=== PATIENT | male | born 1955 | race Asian ===

== ENCOUNTER 2020-11-30 07:30 | Outpatient (REF) | payer OTHER, SELFPAY ==
[2020-11-30 11:59] LABS: Prostate Specific Antigen Scr 2.95 ng/mL (<0.05-4.0); TSH reflex Free T4 1.35 uIU/mL (0.32-4.0)
[2020-11-30 12:02] LABS: Alanine Aminotransferase 28 U/L (0-40); Albumin Level 4.3 g/dL (3.5-5.0); Alkaline Phosphatase 93 U/L (39-117); Anion Gap 14 (12-20); Aspartate Amino Transferase 24 U/L (5-37); Bilirubin Total 0.7 mg/dL (0.0-1.0); Blood Urea Nitrogen 19 mg/dL (9-16); Calcium 8.6 mg/dL (8.4-10.2); Carbon Dioxide 28 mmol/L (22-29); Chloride 102 mmol/L (96-108); Cholesterol 184 mg/dL; Estimated Glomerular Filt Rate > 60; Glucose Fasting 104 mg/dL (60-99); HDL Cholesterol 49 mg/dL; LDL Cholesterol Calculated 107 mg/dl; Sodium 140 mmol/L (135-145); Total Protein 7.8 g/dL (6.5-8.0); Triglycerides 144 mg/dL
== END 2020-11-30 07:31 | disposition home or self-care (01) ==
LOC: HO.HMGCLDS 07:30
PROVIDERS: PCP Nurse Practitioner Family; Visit Provider Nurse Practitioner Family
DX: Z00.00 Encounter for general adult medical examination without abnormal findings (principal); I10 Essential (primary) hypertension; Z12.5 Encounter for screening for malignant neoplasm of prostate; R97.20 Elevated prostate specific antigen [PSA]
CPT/HCPCS: 36415; 80053; 80061; 84153; 84443

== ENCOUNTER 2021-02-22 08:04 | Outpatient (REF) | payer OTHER, SELFPAY ==
[2021-02-22 12:00] LABS: Alanine Aminotransferase 50 U/L (0-40); Albumin Level 4.6 g/dL (3.5-5.0); Alkaline Phosphatase 95 U/L (39-117); Anion Gap 11 (12-20); Aspartate Amino Transferase 37 U/L (5-37); Bilirubin Total 1.1 mg/dL (0.0-1.0); Blood Urea Nitrogen 14 mg/dL (9-16); Calcium 9.4 mg/dL (8.4-10.2); Carbon Dioxide 29 mmol/L (22-29); Chloride 103 mmol/L (96-108); Estimated Glomerular Filt Rate > 60; Glucose Random 115 mg/dL (60-115); Potassium 3.4 mmol/L (3.3-5.1); Sodium 140 mmol/L (135-145); Total Protein 7.9 g/dL (6.5-8.0)
== END 2021-02-22 08:05 | disposition home or self-care (01) ==
LOC: HO.HMGCLDS 08:04
PROVIDERS: PCP Nurse Practitioner Family; Visit Provider Urology
DX: N40.1 Benign prostatic hyperplasia with lower urinary tract symptoms (principal); N13.8 Other obstructive and reflux uropathy; R35.1 Nocturia; R97.20 Elevated prostate specific antigen [PSA]; I10 Essential (primary) hypertension
CPT/HCPCS: 36415; 80053; 84153; 99202

== ENCOUNTER 2021-02-23 08:45 | Outpatient (REF) | payer OTHER, SELFPAY ==
[2021-02-23 12:05] LABS: Prostate Specific Antigen 1.96 ng/mL (<0.05-4.0)
[2021-02-24 08:08] LABS: HBS Num1 0.06 mIU/mL (0-7.99); ~Hepatitis B Surface Antibody NONREACTIVE (Nonreactive)
[2021-02-24 08:57] LABS: HBsAGNum1 0.15 S/CO (0.00-0.99); Hepatitis B Core Antibody Nonreactive (Nonreactive); Hepatitis B Surface Antigen Negative (Negative); ~HepC Num1 0.11 S/CO (0.00-0.79); ~Hepatitis C Antibody Nonreactive (Nonreactive)
[2021-02-24 09:06] LABS: Hepatitis A Antibody IgM 0.13 Index (0-0.79); ~Hepatitis A Antibody IgM Nonreactive (Nonreactive)
== END 2021-02-23 08:46 | disposition home or self-care (01) ==
LOC: HO.HMGCLDS 08:45
PROVIDERS: Urology; PCP Nurse Practitioner Family; Visit Provider Nurse Practitioner Family
DX: Z12.5 Encounter for screening for malignant neoplasm of prostate (principal); N13.8 Other obstructive and reflux uropathy; N40.1 Benign prostatic hyperplasia with lower urinary tract symptoms; R74.8 Abnormal levels of other serum enzymes
CPT/HCPCS: 36415; 84153; 86704; 86706; 86709; 86803; 87340

== ENCOUNTER 2021-04-05 07:39 | Outpatient (REF) | payer OTHER, SELFPAY ==
--- NOTE | ~2021-04-05 | US_ITS ---
EXAMINATION: US ABDOMEN COMPLETE CLINICAL INFORMATION: Abnormal levels of other serum enzymes. COMPARISON: None TECHNIQUE: Real-time imaging of the abdominal viscera. FINDINGS: PANCREAS: Not well visualized due to bowel gas ABDOMINAL AORTA: The proximal, mid, and distal segments are normal in caliber. INFERIOR VENA CAVA: Visualized portions are normal. LIVER: Liver echotexture is increased probably representing fatty infiltration. There is a small calcification in the right lobe of the liver measuring 3 x 1 x 5 mm. There is a hypoechoic area adjacent to the gallbladder, characteristic location of focal fatty sparing. No other focal liver lesion is seen. Liver is normal in size and contour. There is no intrahepatic biliary duct dilatation seen. GALLBLADDER: Normal. The gallbladder is physiologically distended without evidence of stones, sludge, polyps, wall thickening or pericholecystic fluid. COMMON BILE DUCT: Normal in caliber measuring 0.3 cm in diameter. RIGHT KIDNEY: Normal. No hydronephrosis. No renal calculi or focal parenchymal lesions. The kidney measures 10.2 cm in maximum dimension. LEFT KIDNEY: There is a 5 mm cyst exophytic to the lateral midpole. No hydronephrosis or renal calculi. The kidney measures 10.4 cm in maximum dimension. SPLEEN: Normal. The spleen measures 9.9 cm in maximum dimension. FREE FLUID: None. US/US abdomen complete IMPRESSION: Echogenic liver probably representing fatty infiltration. Limited visualization of the pancreas. Small left renal cyst.
== END 2021-04-05 07:40 | disposition home or self-care (01) ==
LOC: HO.US 07:39
PROVIDERS: Visit Provider Nurse Practitioner Family
DX: R74.8 Abnormal levels of other serum enzymes (principal); N40.1 Benign prostatic hyperplasia with lower urinary tract symptoms; N13.8 Other obstructive and reflux uropathy
CPT/HCPCS: 76700; 99212

== ENCOUNTER 2021-10-06 09:03 | Outpatient (REF) | payer OTHER, SELFPAY ==
[2021-10-06 11:57] LABS: Prostate Specific Antigen 2.02 ng/mL (<0.05-4.0)
== END 2021-10-06 09:04 | disposition home or self-care (01) ==
LOC: HO.HMGCLDS 09:03
PROVIDERS: PCP Nurse Practitioner Family; Visit Provider Urology
DX: Z12.5 Encounter for screening for malignant neoplasm of prostate (principal); N40.1 Benign prostatic hyperplasia with lower urinary tract symptoms; N13.8 Other obstructive and reflux uropathy
CPT/HCPCS: 36415; 84153

== ENCOUNTER → 2021-10-13 12:18 | Outpatient (BNVA) | payer OTHER, SELFPAY | PROVIDERS: PCP Nurse Practitioner Family; Visit Provider Urology ==

== ENCOUNTER 2022-03-09 07:46 | Outpatient (REF) | payer OTHER, SELFPAY ==
[2022-03-09 12:00] LABS: MANUAL DIFF FLAG NO
[2022-03-09 12:09] LABS: Basophils Absolute Auto 0.1 X10*3/uL (0.0-0.2); Basophils Percent Auto 0.8 % (0-2); Eosinophils Absolute Auto 0.4 X10*3/uL (0.0-0.4); Eosinophils Percent Auto 5.3 % (0-4); Hematocrit 43.1 % (42.0-52.0); Hemoglobin 14.3 g/dl (14.0-18.0); Imm Gran Abs Auto 0.01 X10*3/uL (0.00-0.03); Imm Gran Pct Auto 0.2 % (0.0-0.4); Lymphocytes Absolute Auto 2.7 X10*3/uL (1.2-4.9); Lymphocytes Percent Auto 40.9 % (20-40); Mean Corpuscular HGB Conc 33.2 g/dl (31.0-36.0); Mean Corpuscular Hemoglobin 29.2 pg (27.0-33.0); Mean Corpuscular Volume 88.1 fL (80.0-98.0); Mean Platelet Volume 10.7 fL (9.4-12.4); Monocytes Percent Auto 14.6 % (2-11); Neutrophils Absolute Auto 2.6 x10*3/uL (2.0-8.3); Neutrophils Percent Auto 38.2 % (45-73); Platelet Count 205 X10*3/uL (160-400); Red Blood Count 4.89 X10*6/uL (4.60-5.80); Red Cell Distribution Width 13.1 % (11.0-16.0); White Blood Count 6.7 X10*3/uL (4.8-10.8)
[2022-03-09 12:11] LABS: Appearance Urine CLOUDY; Color Urine YELLOW; Glucose Urine UA NEG (NEG); Leukocyte Esterase Urine NEG (NEG); Nitrite Urine NEG (NEG); Specific Gravity - Urine 1.025 (1.005-1.025); UACC Culture Trigger NO; Urine Blood 3+ (NEG); Urine Ketones NEG (NEG); Urine Protein NEG (NEG-TRACE)
[2022-03-09 12:26] LABS: Alanine Aminotransferase 31 U/L (0-40); Albumin Level 4.5 g/dL (3.5-5.0); Alkaline Phosphatase 85 U/L (39-117); Anion Gap 13 (12-20); Aspartate Amino Transferase 25 U/L (5-37); Bilirubin Total 0.6 mg/dL (0.0-1.0); Blood Urea Nitrogen 16 mg/dL (9-16); Calcium 9.5 mg/dL (8.4-10.2); Carbon Dioxide 29 mmol/L (22-29); Chloride 102 mmol/L (96-108); Cholesterol 183 mg/dL; Estimated Glomerular Filt Rate > 60; Glucose Fasting 119 mg/dL (60-99); HDL Cholesterol 44 mg/dL; LDL Cholesterol Calculated 116 mg/dl; Potassium 3.6 mmol/L (3.3-5.1); Sodium 140 mmol/L (135-145); Triglycerides 119 mg/dL
[2022-03-09 12:38] LABS: TSH reflex Free T4 1.04 uIU/mL (0.32-4.0)
[2022-03-09 13:01] LABS: WBC Urine 0 /HPF (0-4)
[2022-03-09 13:02] LABS: Amorphous Sediment Urine 3+ /LPF; Calcium Oxalate Crystals Urine 1+ /LPF
== END 2022-03-09 07:47 | disposition home or self-care (01) ==
LOC: HO.HMGCLDS 07:46
PROVIDERS: Visit Provider Nurse Practitioner Family
DX: Z00.00 Encounter for general adult medical examination without abnormal findings (principal)
CPT/HCPCS: 36415; 80053; 80061; 81001; 81003; 84443; 85025

== ENCOUNTER 2022-04-13 15:46 | Outpatient (REF) | payer OTHER, SELFPAY ==
[2022-04-13 17:12] LABS: Appearance Urine CLEAR; Color Urine YELLOW; Glucose Urine UA NEG (NEG); Leukocyte Esterase Urine NEG (NEG); Nitrite Urine NEG (NEG); Specific Gravity - Urine 1.025 (1.005-1.025); Urine Blood 2+ (NEG); Urine Ketones NEG (NEG); Urine Protein NEG (NEG-TRACE)
[2022-04-13 17:18] LABS: WBC Urine 0-2 /HPF (0-4)
== END 2022-04-13 15:47 | disposition home or self-care (01) ==
LOC: HO.LAB 15:46
PROVIDERS: PCP Nurse Practitioner Family; Visit Provider Urology
DX: N13.8 Other obstructive and reflux uropathy (principal); N40.1 Benign prostatic hyperplasia with lower urinary tract symptoms
CPT/HCPCS: 81001; 87086

== ENCOUNTER → 2022-04-19 15:14 | Outpatient (BNVA) | payer OTHER, SELFPAY | PROVIDERS: PCP Nurse Practitioner Family; Visit Provider Nurse Practitioner | DX: Z01.818 Encounter for other preprocedural examination (principal); D12.6 Benign neoplasm of colon, unspecified | CPT/HCPCS: 99202; 99212 ==

== ENCOUNTER 2022-06-28 11:12 | Day surgery (SDC) | payer OTHER, SELFPAY ==
[2022-06-22 12:11] VITALS: BMI 26.8
--- NOTE | 2022-06-27 11:32 | HO.ANESPROP2 ---
Documented by User: Molly Perrin NP 06/27/22 11:33 HPI - Anesthesia Eval Consult details Narrative: 66yo M for Colonoscopy PMFSH Active Problems Active Problems: All Active Problems (Updated 06/22/22 @ 12:06 by Margy Whatley RN) HTN (hypertension) (Acute) Physical exam (Acute) Screening PSA (prostate specific antigen) (Acute) Increased prostate specific antigen (PSA) velocity (Acute) Nocturia more than twice per night (Acute) BPH w urinary obs/LUTS (Acute) Elevated liver enzymes (Acute) Screening for colon cancer (Acute) Preop examination (Acute) Tubular adenoma of colon (Acute) Past Medical History Medical History BPH (benign prostatic hyperplasia) Elevated cholesterol HTN (hypertension) Surgical History Surgical History H/O colonoscopy History of appendectomy Social History Social History Housing: House Patient Tobacco Use Status: Former Tobacco user Quit Date: 8 yrs ago Years Smoked: 8 years ago e-Cigarette/Vaping Use: Never Used Second Hand Smoke Exposure: No Use of substances other than those prescribed or required for medical reasons: No Are you DNR?: No Advance Directives: No Advance Directives Information Provided: Yes service: No Current occupational status: disabled Cognitive needs: No Hearing needs: No Vision needs: No Meds Allergies Allergy/AdvReac Type Severity Reaction Status Date / Time No Known Allergies Allergy Verified 06/28/22 12:18 Home Medications Medication Instructions Recorded Confirmed Last Taken Type ferrous sulfate 325 mg (65 mg 325 mg PO DAILY 02/06/21 02/20/22 Unknown History iron) tablet (Desirae-Time) tamsulosin 0.4 mg capsule 0.4 mg PO BEDTIME 04/19/22 Unknown History Exam Exam Date and Time: June 27, 2022 1132 Height,Weight and Vital Signs: Height 5 ft 6 in Weight 75.296 kg Pertinent Lab Results Pertinent Lab Results: Laboratory Tests 03/09/22 03/09/22 07:52 07:52 WBC 6.7 Hgb 14.3 Hct 43.1 Plt Count 205 Sodium 140 Potassium 3.6 Chloride 102 Carbon Dioxide 29 BUN 16 Creatinine 1.12 Assessment and Plan Assessment Anesthesia Assessment: Chart Reviewed Documented by User: Vidal Francisco MD 06/28/22 12:35 PMF Past Medical History Medical History BPH (benign prostatic hyperplasia) Elevated cholesterol HTN (hypertension) Family History Family history of problems with anesthesia: No Surgical History Surgical History H/O colonoscopy History of appendectomy History of Problems with Anesthesia: No Social History Social History Housing: House Patient Tobacco Use Status: Former Tobacco user Quit Date: 8 yrs ago Years Smoked: 8 years ago e-Cigarette/Vaping Use: Never Used Second Hand Smoke Exposure: No Use of substances other than those prescribed or required for medical reasons: No Are you DNR?: No Advance Directives: No Advance Directives Information Provided: Yes service: No Current occupational status: disabled Cognitive needs: No Hearing needs: No Vision needs: No Meds Allergies Allergy/AdvReac Type Severity Reaction Status Date / Time No Known Allergies Allergy Verified 06/28/22 12:18 Home Medications Medication Instructions Recorded Confirmed Last Taken Type ferrous sulfate 325 mg (65 mg 325 mg PO DAILY 02/06/21 02/20/22 Unknown History iron) tablet (Desirae-Time) tamsulosin 0.4 mg capsule 0.4 mg PO BEDTIME 04/19/22 Unknown History Exam Airway Mallampati Class: II TM Dist: >3cm Neck ROM: Full Loose/Missing/Broken Teeth: No Heart: rrr+[id number] Lungs: cta b/l Assessment and Plan Assessment Anesthesia Assessment: Anesthesia Plan Discussed Final Anesthetic Review Family History of Problems with Anesthesia: No History of Problems with Anesthesia: No NPO: Yes ASA Class: III Final Preanesthetic Review: No Changes in Pt Med Stat, Meds/Allgs Chart Reviewed, Consent Obtained/Reviewed and Anes Risks/Benef Reviewed Patient Risk: Intermediate Procedure Risk: Low Assessment/Block/Sedation in SS: Assess/Block/Sedation-SS Anesthetic Plan Anesthetic Plan: MAC: and Agree w/ Assess. and Plan Disposition: Standard PACU
[2022-06-28 12:25] VITALS: BP 142/85; PULSE 68; RESP 15; TEMP 36.6; O2SAT 98
[2022-06-28] MEDS: Lactated Ringers 1,000 ML 50 ML IVCONT (13:04)
--- NOTE | 2022-06-28 13:14 | P.HPSUR_ITS ---
Pre-Procedural Eval Section A Date of Service: 06/28/22 Section B Chief Complaint: personal hx of polyps Details of Present Illness: Hx of colonoscopy 5y ago in [place] and was told he had 5 polyps. Seen with help of Miguel acute care assistant. Relevant Family History (Specify if Yes): No Relevant Social History: Tobacco Use (Former ) History of Previous Operations: Relevant previous surgery/procedure and date(s) ( H/O colonoscopy History of appendectomy) Allergies: Allergies Allergy/AdvReac Type Severity Reaction Status Date / Time No Known Allergies Allergy Verified 06/28/22 12:18 Review of Systems Review of Systems Comment: 10 point ROS negative except as above Exam Exam Comment: Gen appear: No acute distress, well nourished HEENT: no icterus, Chest: No overt resp distress Abd: soft, nontender, nondistended Psych: Stable affect, answering questions appropriately Neuro: A/Ox3 noted to move all extremities spontaneously Ext: no peripheral edema Plan I have reviewed the history and physical and performed a pertinent physical examination on my patient. No changes have occurred unless specified.
--- NOTE | 2022-06-28 13:48 | P.OP_ITS ---
Operative Note Operative Note Date of Service: 06/28/22 Narrative: Procedure: Colonoscopy Indication: Personal history of polyps Endoscopist: Renu Ornelas MD Anesthesia Provider: Rachel James CRNA Anesthesia type: MAC Instrument: Olympus [id number]-[id number] Consent: Indication, risks vs benefits, and alternatives were discussed with the patient who gave written informed consent to proceed. An marketing analytics analyst was utilized to assist with the consent. EKG, pulse, pulse oximetry and blood pressure were monitored throughout the procedure. Please see anesthesia flowsheet. Procedure: The patient was brought to the procedure room and placed in the left lateral decubitus position. IV medications were administered by the anesthesia provider in attendance. A digital rectal exam was performed which was normal. The colonoscope was then inserted through the anus and advanced through the colon to the cecum at 80 cm,and terminal ileum. Mucosa was carefully examined under high definition white light as the instrument was slowly withdrawn in a retrograde panoramic fashion. Retroflexion was performed in rectum. The procedure was not difficult. There were no immediate obvious complications. The quality of the prep was BBPS: 3+3+3 = excellent Withdrawal time 19 minutes. Limitations: No limitations. Findings: Mucosa: * Normal to cecum and terminal ileum. Protruding lesions: * 3 sessile polyp of size 2-3 mm in rectum. Cold forceps polypectomy was performed. The polyps were completely removed and retrieved. * Medium internal hemorrhoids without stigmata of recent bleeding. Excavated lesions: * Moderate diverticulosis of whole colon including cecum. Impression: 1. Normal colon and terminal ileum mucosa 2. Total of 3 polyps removed from rectum. 3. Diverticulosis 3. Internal hemorrhoids Recommendations: - Follow path results. - Repeat colonoscopy in 3-5 years if all polyps are adenomas, otherwise 7-10 years. - Increase fiber intake.
[2022-06-28 13:53] VITALS: BP 104/62; PULSE 68; RESP 16; TEMP 36.2; O2SAT 96
[2022-06-28 14:08] VITALS: BP 131/80; PULSE 69; RESP 16; TEMP 36.2; O2SAT 96
== END 2022-06-28 14:30 | disposition home or self-care (01) ==
PROVIDERS: PCP Nurse Practitioner Family; Visit Provider Internal Medicine
PROC: 0DJD8ZZ Inspection of Lower Intestinal Tract, Via Natural or Artificial Opening Endoscopic (ICD-10-PCS; CPT 45378; principal; 2022-06-28 12:40)
DX: Z12.11 Encounter for screening for malignant neoplasm of colon (principal); Z86.010 Personal history of colon polyps; K62.1 Rectal polyp; K57.30 Diverticulosis of large intestine without perforation or abscess without bleeding; K64.8 Other hemorrhoids; I10 Essential (primary) hypertension; N40.0 Benign prostatic hyperplasia without lower urinary tract symptoms; R74.8 Abnormal levels of other serum enzymes; Z79.899 Other long term (current) drug therapy; Z87.891 Personal history of nicotine dependence
CPT/HCPCS: 45380; 88305

== ENCOUNTER → 2022-07-12 09:57 | Outpatient (BNVA) | payer OTHER, SELFPAY | PROVIDERS: PCP Nurse Practitioner Family; Visit Provider Nurse Practitioner | DX: D12.6 Benign neoplasm of colon, unspecified (principal) | CPT/HCPCS: 99212 ==

== ENCOUNTER → 2022-09-07 07:17 | Outpatient (REF) | payer MEDICAID, SELFPAY ==
--- NOTE | 2022-09-07 07:20 | CA_ITS ---
Transthoracic Echocardiogram Patient (Last, First, Middle): Bertram Hidalgo, Gender: Male Date of : 1955 Age: 67 Procedure Date: 09/07/2022 Procedure Type: Transthoracic Echocardiogram Location: OP Height: 167.64 cm Weight: 77.11 kg BSA: 1.87 m2 Heart Rate: bpm BP: 123 / 60 mmHg Pc Network Technician: Referring MD: Darwin Del Angel [facility] Symptoms: R01.1 - Cardiac murmur, unspecified Study Quality: Good ECG Rhythm: Sinus Conclusions: - The left ventricular systolic function is normal. The calculated ejection fraction is 60% by biplane method. - There is moderately increased left ventricular wall thickness. - No obvious valvular pathology seen on this study. Findings Left Ventricle Normal left ventricular cavity size. There is moderately increased left ventricular wall thickness. The left ventricular systolic function is normal. The calculated ejection fraction is 60% by biplane method. There is no evidence of regional wall motion abnormalities. E/E prime ratio is between 8 and 15 consistent with indeterminate filling pressures. Evidence suggests grade I (mild) diastolic dysfunction. Right Ventricle Normal right ventricular cavity size and systolic function. Atria Both atria are normal in size. There is a mobile atrial septum noted. Interatrial shunt cannot be excluded. Aortic Valve There is a normal trileaflet aortic valve. There is mild calcification of the aortic valve. There is no aortic valve stenosis. There is no aortic valve regurgitation. Mitral Valve The mitral valve appears normal. There is trace mitral valve regurgitation. There is no mitral valve stenosis. Pulmonic Valve The pulmonic valve is likely normal. Tricuspid Valve Normal tricuspid valve structure. There is trace tricuspid valve regurgitation. There is no evidence of pulmonary hypertension. Great Vessels The asc aorta is normal in size. Venous The inferior vena cava is normal in size and collapses greater than 50% with inspiration. Pericardium/Pleural There is no evidence of pericardial effusion. Prior Study Comparison No prior study available for comparison. Recommendations, Care & Conclusions No obvious valvular pathology seen on this study. Measurements 2D Linear Measurements IVSd: 1.34 0.6-0.9/0.6-1.0 cm LVIDd: 3.91 3.9-5.3/4.2-5.9 cm LVIDd Index: 2.09 2.4-3.2/2.2-3.1 cm/m2 LVIDs: 2.74 2.0-3.6 cm LVPWd: 1.23 0.7-1.1 cm Ao Root: 3.60 2.1-3.5 cm LA Diam: 3.90 2.7-3.8/3.0-4.0 cm LAIDs Index: 2.09 1.5-2.3 cm/m2 LV Mass: 220.81 67-162/88-224 g LV Mass Index: 118.08 43-95/49-115 g/m2 LVOT Diam: 2.50 3.0+(-)1.3 cm 2D Systolic Function EF 4C: 61.50 >55% EF 2C: 61.20 >55% EF BiP: 60.00 >55% Mitral Valve MV Pk E: 0.55 MV PK A: 0.87 MV Decel Time: 238.00 E/A: 0.60 E'Lateral: 6.09 E'Medial: 4.46 E/E' Med: 12.30 E/E' Lat: 9.00 PHT: 70.00 MVA PHT: 3.14 Decel [place]: 2.31 Aortic Valve AoV Pk Ed[place]ard: 1.30 AoV Mn [place]: 0.80 AoV VTI: 0.22 AoV Pk Grad: 7.00 Aov Mn Grad: 3.00 HODA Cont.VTI: 4.27 LVOT LVOT Pk [place]: 0.84 LVOT Mn [place]: 0.50 LVOT VTI: 0.20 LVOT Pk Grad: 3.00 LVOT Mn Grad: 1.00 LVOT Diam: 2.50 LVOT Area: 4.91 Diastolic Function MV Pk E: 0.55 MV Pk A: 0.87 E/A: 0.60 E'Medial: 4.46 E/E' Med: 12.30 E' Laterial: 6.09 E/E' Lat: 9.00 Right Ventricle TAPSE (mm): 19.00 TVS' [place]: 11.00 Tricuspid Valve TR Pk [place]ard: 2.10 TR Pk Grad: 18.00 RA Press: 3.00 RVSP: 21.00 Great Vessels Aorta Ao Root-2D: 3.60 2.0-3.7 cm Ao Asc: 3.80 2.1-3.4 cm Pulmonary Valve PV Pk Edouard: 1.02 Peak PV Grad: 4.00 Updated in Other Vendor System with Status of Final Blas Chi MD electronically signed on 09/08/2022 2:17:17 PM with status of Final
== END ==
LOC: HO.CARD 07:17
PROVIDERS: PCP Nurse Practitioner Family; Visit Provider Nurse Practitioner Family
DX: R01.1 Cardiac murmur, unspecified (principal)
CPT/HCPCS: 93306

== ENCOUNTER 2022-09-24 08:46 | Outpatient (REF) | payer MEDICAID, SELFPAY ==
[2022-09-24 13:00] LABS: Prostate Specific Antigen 2.77 ng/mL (<0.05-4.0)
== END 2022-09-24 08:47 | disposition home or self-care (01) ==
LOC: HO.HMGCLDS 08:46
PROVIDERS: Absent Provider Urology; PCP Nurse Practitioner Family; Visit Provider Nurse Practitioner Family
DX: N40.1 Benign prostatic hyperplasia with lower urinary tract symptoms (principal); N13.8 Other obstructive and reflux uropathy; Z12.5 Encounter for screening for malignant neoplasm of prostate
CPT/HCPCS: 36415; 84153

== ENCOUNTER → 2022-10-16 14:38 | Outpatient (BNVA) | payer MEDICAID, SELFPAY | PROVIDERS: PCP Nurse Practitioner Family; Visit Provider Urology | DX: N40.1 Benign prostatic hyperplasia with lower urinary tract symptoms (principal); N13.8 Other obstructive and reflux uropathy; R35.1 Nocturia | CPT/HCPCS: 51798; 99212 ==

== ENCOUNTER 2022-12-04 08:01 | Outpatient (REF) | payer MEDICAID, SELFPAY ==
[2022-12-04 11:39] LABS: MANUAL DIFF FLAG NO
[2022-12-04 11:43] LABS: Appearance Urine Turbid; Color Urine Yellow; Glucose Urine UA Negative (Negative); Leukocyte Esterase Urine Negative (Negative); Nitrite Urine Negative (Negative); Specific Gravity - Urine 1.025 (1.005-1.025); UMIC TRIGGER UACC YES; Urine Blood Moderate (2+) (Negative); Urine Ketones Trace mg/dL (Negative); Urine Protein Trace mg/dL (Neg-Trace)
[2022-12-04 11:54] LABS: Basophils Absolute Auto 0.1 X10*3/uL (0.0-0.2); Basophils Percent Auto 0.7 % (0-2); Eosinophils Absolute Auto 0.4 X10*3/uL (0.0-0.4); Eosinophils Percent Auto 4.8 % (0-4); Hematocrit 43.8 % (42.0-52.0); Hemoglobin 14.7 g/dl (14.0-18.0); Imm Gran Abs Auto 0.02 X10*3/uL (0.00-0.03); Imm Gran Pct Auto 0.3 % (0.0-0.4); Lymphocytes Absolute Auto 3.2 X10*3/uL (1.2-4.9); Mean Corpuscular HGB Conc 33.6 g/dl (31.0-36.0); Mean Corpuscular Hemoglobin 29.1 pg (27.0-33.0); Mean Corpuscular Volume 86.7 fL (80.0-98.0); Mean Platelet Volume 10.6 fL (9.4-12.4); Monocytes Absolute Auto 0.8 X10*3/uL (0.1-1.2); Monocytes Percent Auto 10.7 % (2-11); Neutrophils Percent Auto 40.5 % (45-73); Platelet Count 243 X10*3/uL (160-400); Red Blood Count 5.05 X10*6/uL (4.60-5.80); Red Cell Distribution Width 12.9 % (11.0-16.0); White Blood Count 7.5 X10*3/uL (4.8-10.8)
[2022-12-04 12:33] LABS: Bacteria Urine None Seen (None Seen); Calcium Oxalate Crystals Urine Present; Hyaline Casts Urine 0-2 /LPF (0-2); Squamous Epithelial Cell Urine 0-2 /HPF (0-2); WBC Urine 0-5 /HPF (0-5)
[2022-12-04 12:33] LABS: Alanine Aminotransferase 32 U/L (0-40); Albumin Level 4.3 g/dL (3.5-5.0); Alkaline Phosphatase 88 U/L (39-117); Anion Gap 16 (12-20); Aspartate Amino Transferase 26 U/L (5-37); Bilirubin Total 1.3 mg/dL (0.0-1.0); Blood Urea Nitrogen 17 mg/dL (9-16); Carbon Dioxide 25 mmol/L (22-29); Chloride 102 mmol/L (96-108); Cholesterol 165 mg/dL; Estimated Glomerular Filt Rate 57; Glucose Fasting 144 mg/dL (60-99); HDL Cholesterol 42 mg/dL; LDL Cholesterol Calculated 100 mg/dl; Potassium 3.3 mmol/L (3.3-5.1); Sodium 140 mmol/L (135-145); TSH reflex Free T4 1.56 uIU/mL (0.32-4.0); Total Protein 7.7 g/dL (6.5-8.0); Triglycerides 116 mg/dL
== END 2022-12-04 08:02 | disposition home or self-care (01) ==
LOC: HO.HMGCLDS 08:01
PROVIDERS: PCP Nurse Practitioner Family; Visit Provider Nurse Practitioner Family
DX: I10 Essential (primary) hypertension (principal)
CPT/HCPCS: 36415; 80053; 80061; 81001; 81003; 84443; 85025

== ENCOUNTER 2023-01-14 08:14 | Outpatient (REF) | payer MEDICAID, SELFPAY ==
[2023-01-14 11:18] LABS: Urine Cytology See Pathology rpt
[2023-01-14 11:26] LABS: Appearance Urine Turbid; Color Urine Yellow; Glucose Urine UA Negative (Negative); Leukocyte Esterase Urine Moderate (2+) (Negative); Nitrite Urine Negative (Negative); PH 5.5 (5.0-9.0); UMIC TRIGGER UACC YES; Urine Blood Moderate (2+) (Negative); Urine Ketones Negative (Negative); Urine Protein Trace mg/dL (Neg-Trace)
[2023-01-14 11:36] LABS: Bacteria Urine None Seen (None Seen); Calcium Oxalate Crystals Urine Present; Hyaline Casts Urine 0-2 /LPF (0-2); Squamous Epithelial Cell Urine 0-2 /HPF (0-2); UACC Culture Trigger YES
[2023-01-14 12:13] LABS: Alanine Aminotransferase 29 U/L (0-40); Albumin Level 4.2 g/dL (3.5-5.0); Alkaline Phosphatase 81 U/L (39-117); Anion Gap 11 (12-20); Aspartate Amino Transferase 21 U/L (5-37); Bilirubin Total 0.7 mg/dL (0.0-1.0); Blood Urea Nitrogen 17 mg/dL (9-16); Calcium 9.1 mg/dL (8.4-10.2); Carbon Dioxide 30 mmol/L (22-29); Chloride 104 mmol/L (96-108); Estimated Glomerular Filt Rate > 60; Glucose Fasting 127 mg/dL (60-99); Potassium 3.6 mmol/L (3.3-5.1); Sodium 141 mmol/L (135-145); Total Protein 7.7 g/dL (6.5-8.0)
== END 2023-01-14 08:15 | disposition home or self-care (01) ==
LOC: HO.HMGCLDS 08:14
PROVIDERS: PCP Nurse Practitioner Family; Visit Provider Nurse Practitioner Family
DX: R31.29 Other microscopic hematuria (principal); R73.01 Impaired fasting glucose
CPT/HCPCS: 36415; 80053; 81001; 87086; 88112

== ENCOUNTER 2023-01-29 09:25 | Outpatient (REF) | payer MEDICAID, SELFPAY ==
[2023-01-29 11:17] LABS: Appearance Urine Clear; Color Urine Yellow; Glucose Urine UA Negative (Negative); Leukocyte Esterase Urine Small (1+) (Negative); Nitrite Urine Negative (Negative); PH 6.5 (5.0-9.0); Specific Gravity - Urine 1.015 (1.005-1.025); UMIC TRIGGER UACC YES; Urine Blood Small (1+) (Negative); Urine Ketones Negative (Negative); Urine Protein Negative (Neg-Trace)
[2023-01-29 11:31] LABS: Bacteria Urine None Seen (None Seen); Hyaline Casts Urine 0-2 /LPF (0-2); Squamous Epithelial Cell Urine 0-2 /HPF (0-2); UACC Culture Trigger YES
[2023-01-29 11:39] LABS: Estimated Average Glucose 166 mg/dL; Hemoglobin A1c % 7.4 %
[2023-01-29 11:53] LABS: Creatinine Urine 123.95 mg/dL; Microalbum/Creatinine Ratio Ur 9.6 ug/mg cr
== END 2023-01-29 09:26 | disposition home or self-care (01) ==
LOC: HO.HMGCLDS 09:25
PROVIDERS: PCP Nurse Practitioner Family; Visit Provider Nurse Practitioner Family
DX: E11.9 Type 2 diabetes mellitus without complications (principal)
CPT/HCPCS: 36415; 81001; 82043; 83036; 87086

== ENCOUNTER 2023-05-30 08:17 | Outpatient (REF) | payer MEDICAID, SELFPAY ==
[2023-05-30 11:06] LABS: MANUAL DIFF FLAG NO
[2023-05-30 11:25] LABS: Appearance Urine Clear; Color Urine Dark Yellow; Glucose Urine UA Negative (Negative); Leukocyte Esterase Urine Small (1+) (Negative); Nitrite Urine Negative (Negative); UMIC TRIGGER UACC YES; Urine Blood Moderate (2+) (Negative); Urine Ketones Trace mg/dL (Negative); Urine Protein Trace mg/dL (Neg-Trace)
[2023-05-30 11:32] LABS: Basophils Absolute Auto 0.1 X10*3/uL (0.0-0.2); Basophils Percent Auto 0.8 % (0-2); Eosinophils Absolute Auto 0.4 X10*3/uL (0.0-0.4); Eosinophils Percent Auto 4.9 % (0-4); Hematocrit 44.1 % (42.0-52.0); Hemoglobin 14.7 g/dl (14.0-18.0); Imm Gran Abs Auto 0.01 X10*3/uL (0.00-0.03); Imm Gran Pct Auto 0.1 % (0.0-0.4); Lymphocytes Absolute Auto 2.9 X10*3/uL (1.2-4.9); Lymphocytes Percent Auto 37.8 % (20-40); Mean Corpuscular HGB Conc 33.3 g/dl (31.0-36.0); Mean Corpuscular Hemoglobin 29.1 pg (27.0-33.0); Mean Corpuscular Volume 87.3 fL (80.0-98.0); Mean Platelet Volume 10.8 fL (9.4-12.4); Monocytes Absolute Auto 0.8 X10*3/uL (0.1-1.2); Monocytes Percent Auto 10.4 % (2-11); Neutrophils Absolute Auto 3.5 x10*3/uL (2.0-8.3); Platelet Count 207 X10*3/uL (160-400); Red Blood Count 5.05 X10*6/uL (4.60-5.80); White Blood Count 7.5 X10*3/uL (4.8-10.8)
[2023-05-30 11:32] LABS: Bacteria Urine None Seen (None Seen); Hyaline Casts Urine 0-2 /LPF (0-2); Squamous Epithelial Cell Urine 0-2 /HPF (0-2); UACC Culture Trigger YES
[2023-05-30 11:52] LABS: Alanine Aminotransferase 38 U/L (0-40); Albumin Level 4.3 g/dL (3.5-5.0); Alkaline Phosphatase 77 U/L (39-117); Anion Gap 17 (12-20); Aspartate Amino Transferase 25 U/L (5-37); Blood Urea Nitrogen 13 mg/dL (9-16); Calcium 9.6 mg/dL (8.4-10.2); Carbon Dioxide 27 mmol/L (22-29); Chloride 101 mmol/L (96-108); Cholesterol 175 mg/dL (<200); Estimated Glomerular Filt Rate > 60; Glucose Fasting 125 mg/dL (60-99); HDL Cholesterol 43 mg/dL (>40); LDL Cholesterol Calculated 83 mg/dL (<100); Potassium 3.3 mmol/L (3.3-5.1); Sodium 142 mmol/L (135-145); Total Protein 8.1 g/dL (6.5-8.0); Triglycerides 246 mg/dL (<150)
[2023-05-30 12:11] LABS: TSH reflex Free T4 1.23 uIU/mL (0.32-4.0)
== END 2023-05-30 08:18 | disposition home or self-care (01) ==
LOC: HO.HMGCLDS 08:17
PROVIDERS: PCP Nurse Practitioner Family; Visit Provider Nurse Practitioner Family
DX: Z00.00 Encounter for general adult medical examination without abnormal findings (principal); E11.9 Type 2 diabetes mellitus without complications; I10 Essential (primary) hypertension
CPT/HCPCS: 36415; 80053; 80061; 81001; 84443; 85025; 87086

== ENCOUNTER 2023-06-05 09:22 | Outpatient (AMB) | payer MEDICARE, MEDICAID, SELFPAY ==
[2023-06-05 09:30] VITALS: BP 130/80; PULSE 103; O2SAT 96; BMI 27.5
--- NOTE | 2023-06-05 09:30 | MHC.PC.OV ---
Vital Signs 06/05/23 09:30 Height 5 ft 6 in Weight 170 lb 4 oz BMI 27.5 BP 130/80 Blood Pressure Location Rt brachial Position Sitting Pulse 103 H Pulse Source Pulse Oximeter Pulse Oximetry (%) 96 Oxygen Delivery Method Room Air Intake Visit Reasons: 4 month follow up Allergies No Known Allergies Allergy (Verified 06/05/23 09:32) Tobacco use date assessed: 06/05/23 Fall risk assessment: No Falls in past year Last assessed Fall Risk: 06/05/23 Dental Screening Dental Screen Date: 06/05/23 Did you have a dental visit in the last 12 months?: No Did you have a dental problem in the last 6 months where you did not have access to dental care?: No Was dental information given to patient?: No HPI 4 month follow up HPI Details Patient is here for follow-up for diabetes. His A1c was 7.3 today. He is currently on metformin ER once a day. I will increase to twice a day dosing. Encouraged to continue to work on diet. His eye exam is up-to-date. He is currently on a statin and a Alex. I will increase his atorvastatin from 10 mg to 20 mg at night, which will hopefully help bring down his triglycerides a little bit more. He understands the signs and symptoms of hypoglycemia and how corrected. He denies any polyuria, polydipsia, neuropathy. Daughter translates for pt. [facility] Medical History BPH (benign prostatic hyperplasia) Elevated cholesterol HTN (hypertension) Surgical History H/O colonoscopy History of appendectomy Social History Housing: House Patient Tobacco Use Status: Former Tobacco user Quit Date: 8 yrs ago Years Smoked: 8 years ago e-Cigarette/Vaping Use: Never Used Second Hand Smoke Exposure: No service: No Current occupational status: disabled Cognitive needs: No Hearing needs: No Vision needs: Yes Questionnaire Thrive Questionnaire Date Thrive assessed: 02/25/23 LO-7 AMB Questionnaire LO-7 Date LO - 7 assessed: 02/25/23 Source: Developed by Drs. Juan Carlos L. MarianoSuzette walker Kurt Kroenke and colleagues, with an educational kailee from [employer] Physical exam (Primary Care) Vital Signs: Last Vital Signs Pulse 103 H 06/05/23 09:30 BP 130/80 06/05/23 09:30 Pulse Ox 96 06/05/23 09:30 Oxygen Delivery Method Room Air 06/05/23 09:30 BMI result Body Mass Index 27.5 Tobacco/Smoking Status: Tobacco use Status Tobacco use date assessed 06/05/23 06/05/23 09:33 Patient Tobacco Use Status Former Tobacco user 06/05/23 09:33 e-Cigarette/Vaping Use Never Used 06/05/23 09:33 Thrive Assessment: Date of Thrive Assessment Date Thrive assessed 02/25/23 06/05/23 09:33 Const General: cooperative and comfortable Resp Effort & Inspection: normal respiratory effort Auscultation: clear to auscultation bilaterally Cardio Rate: regular rate Rhythm: regular rhythm Heart sounds: S1 normal heart sound present, S2 normal heart sound present and Murmur heart sound present (? faint systolic) Neuro Other: feet intact, + sensation with use of monofilament Psych Appearance: grossly normal Affect: normal affect Thought content: Normal thought content present Assessment and Plan Assessment & Plan (1) Diabetes: Code(s): E11.9 - Type 2 diabetes mellitus without complications Orders: Orders AMB Hemoglobin A1c Today E11.9 - Type 2 diabetes mellitus without complications Medications: Changed From metformin ER 500 mg PO DAILY 30 tabs 2RF To metformin ER 500 mg PO BID 90 days 180 tabs 2RF From atorvastatin 10 mg PO QPM 90 tabs 1RF To atorvastatin 20 mg PO QPM 90 tabs 1RF Coding Level of Care Code Est Pt Level 3 (63087) Diagnoses Diabetes E11.9
== END 2023-06-05 09:57 | disposition home or self-care (01) ==
PROVIDERS: PCP Nurse Practitioner Family; Visit Provider Nurse Practitioner Family
DX: E11.9 Type 2 diabetes mellitus without complications (principal)
CPT/HCPCS: 83036; 99213

== ENCOUNTER 2023-10-09 09:57 | Outpatient (AMB) | payer MEDICARE, MEDICAID, SELFPAY ==
--- NOTE | 2023-10-09 10:12 | MHC.PC.OV ---
Vital Signs 10/09/23 10:14 Height 5 ft 6 in Weight 172 lb BMI 27.8 BP 122/76 Blood Pressure Location Rt brachial Position Sitting Pulse 102 H Pulse Source Pulse Oximeter Pulse Oximetry (%) 96 Oxygen Delivery Method Room Air Intake Visit Reasons: 4M follow up Intake Note: Pt is here for to follow up for his DM Allergies No Known Allergies Allergy (Verified 10/09/23 10:17) Tobacco use date assessed: 10/09/23 Fall risk assessment: No Falls in past year Last assessed Fall Risk: 10/09/23 Dental Screening Dental Screen Date: 10/09/23 Did you have a dental visit in the last 12 months?: No Did you have a dental problem in the last 6 months where you did not have access to dental care?: No Was dental information given to patient?: No HPI 4M follow up HPI Details Pt is a diabetic, on an ROSALVA and a statin. A1C in office today is 7.7. Microalbumin is up to date. Denies polyuria, polydipsia, and neuropathy. Pt denies any signs and symptoms of hypoglycemia and does know how to correct it. Pt has only been taking his metformin once a day, will have him increase to twice a day. Pt will work on his diet. Eye exam is up to date. Informed pt he can obtain his prevnar 20 at his pharmacy. daughter is in the room to help translate [facility] Medical History Elevated cholesterol BPH (benign prostatic hyperplasia) HTN (hypertension) Surgical History History of appendectomy H/O colonoscopy Social History Housing: House Patient Tobacco Use Status: Former Tobacco user Quit Date: 8 yrs ago Years Smoked: 8 years ago e-Cigarette/Vaping Use: Never Used Second Hand Smoke Exposure: No service: No Current occupational status: disabled Cognitive needs: No Hearing needs: No Vision needs: Yes Questionnaire PHQ-9 Over the last 2 weeks, how often have you been bothered by any of the following problems? 1. Little interest or pleasure in doing things: not at all 2. Feeling down, depressed, or hopeless: not at all 3. Trouble falling or staying asleep, or sleeping too much: not at all 4. Feeling tired or having little energy: not at all 5. Poor appetite or overeating: not at all 6. Feeling bad about yourself - or that you are a failure or have let yourself or your family down: not at all 7. Trouble concentrating on things, such as reading the newspaper or watching television: not at all 8. Moving or speaking so slowly that other people could have noticed. Or the opposite - being so fidgety or restless that you have been moving around a lot more than usual: not at all 9. Thoughts that you would be better off or of hurting yourself in some way: not at all Total score: 0 Source: Developed by Drs. Juan Carlos Quintana, Suzette Villalpando, Ronald Goodwin and colleagues, with an educational kailee from [employer]. Thrive Questionnaire Date Thrive assessed: 10/09/23 I am a: Patient What is your living situation today?: I have a steady place to live Within the past 12 months, did the food you bought not last and you didn't have the money to get more?: Never true Within the past 12 months, did you worry whether your food would run out before you got money to buy more?: Never true Do you have trouble paying for medicines?: No Do you have trouble getting transportation to medical appointments?: No Do you have trouble paying your heating and electricity bill?: No Do you have trouble taking care of your child, family member or friend?: No Do you have trouble with day-to-day activities such as bathing, preparing meals, shopping, managing finances, etc.?: No Are you currently unemployed and looking for a job?: No Are you interested in more education?: No THRIVE Score: 0 AUDIT C Alcohol Use Questionnaire (AUDIT-C) 1. How often do you have a drink containing alcohol?: Never Total Score: 0 LO-7 AMB Questionnaire LO-7 Date LO - 7 assessed: 10/09/23 Feeling nervous, anxious, or on edge: 0 = Not at all Not being able to stop or control worryin = Not at all Worrying too much about different things: 0 = Not at all Trouble relaxin = Not at all Being so restless that it is hard to sit still: 0 = Not at all Becoming easily annoyed or irritable: 0 = Not at all Feeling afraid as if something awful might happen: 0 = Not at all Total LO-7 score (0-4 normal; 5-9 mild; 10-14 moderate; 15-21 severe): 0 Source: Developed by Drs. Juan Carlos Quintana, Suzette Villalpando, Ronald Goodwin and colleagues, with an educational kailee from [employer]. Review of Systems Const Reports as per HPI Physical exam (Primary Care) Vital Signs: Last Vital Signs Pulse 102 H 10/09/23 10:14 BP 122/76 10/09/23 10:14 Pulse Ox 96 10/09/23 10:14 Oxygen Delivery Method Room Air 10/09/23 10:14 BMI result Body Mass Index 27.8 Tobacco/Smoking Status: Tobacco use Status Tobacco use date assessed 10/09/23 10/09/23 10:19 Patient Tobacco Use Status Former Tobacco user 10/09/23 10:19 e-Cigarette/Vaping Use Never Used 10/09/23 10:19 Thrive Assessment: Date of Thrive Assessment Date Thrive assessed 10/09/23 10/09/23 10:32 Const General: cooperative Orientation/consciousness: patient oriented x3 Resp Effort & Inspection: normal respiratory effort Auscultation: clear to auscultation bilaterally Cardio Rate: regular rate Rhythm: regular rhythm Heart sounds: S1 normal heart sound present and S2 normal heart sound present Neuro General: patient oriented x3 Extrem Other: bilat feet: + sensation with use of monofilament Psych Appearance: grossly normal Mental Status: mental status grossly normal Speech and movement: Normal speech and movement present Affect: normal affect Attitude: cooperative Thought process: Normal thought process present Thought content: Normal thought content present Insight: Good insight present (Psych) Judgement: Good judgement present (Psych) Results AMB Hemoglobin A1c AMB Hemoglobin A1c 7.7 % Last Edit by Katia Browning CMA on 10/09/23 10:36 Results Reviewed Results Reviewed: Laboratory Last Values Hgb A1c (Clinic) 7.7 % (4.0-6.0) H 10/09/23 10:35 Assessment and Plan Assessment & Plan (1) Diabetes: Code(s): E11.9 - Type 2 diabetes mellitus without complications Plan: Labs ordered Plan The patient agreed to the use of a chief medical director for this encounter. Scribed for JUD Velez by Johnna Matos chief medical director, on 10/09/2023 at 10:35 EST. Orders: Orders Comprehensive [place]. Panel Fast Today E11.9 - Type 2 diabetes mellitus without complications TSH reflex Free T4 Today E11.9 - Type 2 diabetes mellitus without complications AMB Hemoglobin A1c Today E11.9 - Type 2 diabetes mellitus without complications Complete Blood Count Auto Diff Today E11.9 - Type 2 diabetes mellitus without complications UA CC w/rflx Micro + Cult Today E11.9 - Type 2 diabetes mellitus without complications Lipid Panel Today E11.9 - Type 2 diabetes mellitus without complications Medications: Changed From lancets (BD Ultra-Fine II Lancets) Use to check blood sugar twice daily; once fasting and a random sugar 200 ea 1RF E11.9 - Type 2 diabetes mellitus without complications, R73.01 - Impaired fasting glucose To lancets Use to check blood sugar twice daily; once fasting and a random sugar 200 ea 1RF E11.9 - Type 2 diabetes mellitus without complications, R73.01 - Impaired fasting glucose Refilled blood sugar diagnostic (FreeStyle Lite Strips) Use to check blood sugar twice daily; once fasting and a random sugar 200 ea 1RF E11.9 - Type 2 diabetes mellitus without complications, R73.01 - Impaired fasting glucose Coding Level of Care Code Est Pt Level 3 (39729) Diagnoses Diabetes E11.9
[2023-10-09 10:14] VITALS: BP 122/76; PULSE 102; O2SAT 96; BMI 27.8
== END 2023-10-09 10:53 | disposition home or self-care (01) ==
PROVIDERS: PCP Nurse Practitioner Family; Visit Provider Nurse Practitioner Family
DX: E11.9 Type 2 diabetes mellitus without complications (principal)
CPT/HCPCS: 83036; 99213

== ENCOUNTER 2023-10-14 08:20 | Outpatient (REF) | payer MEDICARE, MEDICAID, SELFPAY ==
[2023-10-14 11:43] LABS: Appearance Urine Clear; Color Urine Yellow; Glucose Urine UA Negative (Negative); Leukocyte Esterase Urine Trace (Negative); Nitrite Urine Negative (Negative); PH 6.5 (5.0-9.0); UMIC TRIGGER UACC YES; Urine Blood Moderate (2+) (Negative); Urine Ketones Trace mg/dL (Negative); Urine Protein Negative (Neg-Trace)
[2023-10-14 11:48] LABS: Bacteria Urine None Seen (None Seen); Hyaline Casts Urine 0-2 /LPF (0-2); MANUAL DIFF FLAG NO; Squamous Epithelial Cell Urine 0-2 /HPF (0-2); WBC Urine 0-5 /HPF (0-5)
[2023-10-14 12:00] LABS: Basophils Percent Auto 0.6 % (0-2); Eosinophils Absolute Auto 0.4 X10*3/uL (0.0-0.4); Eosinophils Percent Auto 6.2 % (0-4); Hematocrit 41.3 % (42.0-52.0); Imm Gran Abs Auto 0.02 X10*3/uL (0.00-0.03); Imm Gran Pct Auto 0.3 % (0.0-0.4); Lymphocytes Absolute Auto 2.1 X10*3/uL (1.2-4.9); Lymphocytes Percent Auto 31.6 % (20-40); Mean Corpuscular HGB Conc 33.9 g/dl (31.0-36.0); Mean Corpuscular Hemoglobin 29.2 pg (27.0-33.0); Mean Corpuscular Volume 86.2 fL (80.0-98.0); Mean Platelet Volume 10.8 fL (9.4-12.4); Monocytes Absolute Auto 0.7 X10*3/uL (0.1-1.2); Monocytes Percent Auto 10.7 % (2-11); Neutrophils Absolute Auto 3.4 x10*3/uL (2.0-8.3); Neutrophils Percent Auto 50.6 % (45-73); Platelet Count 187 X10*3/uL (160-400); Red Blood Count 4.79 X10*6/uL (4.60-5.80); Red Cell Distribution Width 13.2 % (11.0-16.0); White Blood Count 6.6 X10*3/uL (4.8-10.8)
[2023-10-14 12:41] LABS: Prostate Specific Antigen 2.26 ng/mL (<0.05-4.0)
[2023-10-14 12:44] LABS: Alanine Aminotransferase 32 U/L (0-40); Albumin Level 4.2 g/dL (3.5-5.0); Alkaline Phosphatase 74 U/L (39-117); Anion Gap 14 (12-20); Aspartate Amino Transferase 27 U/L (5-37); Bilirubin Total 0.8 mg/dL (0.0-1.0); Blood Urea Nitrogen 18 mg/dL (9-16); Calcium 9.2 mg/dL (8.4-10.2); Carbon Dioxide 26 mmol/L (22-29); Chloride 104 mmol/L (96-108); Cholesterol 138 mg/dL (<200); Estimated Glomerular Filt Rate > 60; Glucose Fasting 128 mg/dL (60-99); HDL Cholesterol 45 mg/dL (>40); LDL Cholesterol Calculated 72 mg/dL (<100); Potassium 3.2 mmol/L (3.3-5.1); Sodium 141 mmol/L (135-145); TSH reflex Free T4 0.91 uIU/mL (0.32-4.0); Total Protein 7.9 g/dL (6.5-8.0); Triglycerides 108 mg/dL (<150)
== END 2023-10-14 08:21 | disposition home or self-care (01) ==
LOC: HO.HMGCLDS 08:20
PROVIDERS: Urology; PCP Nurse Practitioner Family; Visit Provider Nurse Practitioner Family
DX: N40.1 Benign prostatic hyperplasia with lower urinary tract symptoms (principal); N13.8 Other obstructive and reflux uropathy; E11.9 Type 2 diabetes mellitus without complications; Z12.5 Encounter for screening for malignant neoplasm of prostate
CPT/HCPCS: 36415; 80053; 80061; 81001; 84153; 84443; 85025

== ENCOUNTER 2023-12-24 09:58 | Outpatient (AMB) | payer MEDICARE, MEDICAID, SELFPAY ==
--- NOTE | 2023-12-24 10:05 | A.OFFVIS_ITS ---
Intake Visit Reasons: 1Y PSA/PVR(set) Intake Note: Patient is Present for Follow Up Urology Medication: Tamsulosin Antibiotic Allergies: None Blood Thinners: None PVR: 42 Allergies No Known Allergies Allergy (Verified 12/24/23 10:05) Medication List - Last Reconciled 12/24/23 by Prashant Schreiber MD amlodipine 2.5 mg PO DAILY 90 days atorvastatin 20 mg PO QPM blood sugar diagnostic (FreeStyle Lite Strips) test blood sugar once a day blood-glucose meter (FreeStyle Lite Meter kit) Use to check blood sugar twice daily; once fasting and a random sugar cholecalciferol (vitamin D3) 50 mcg PO DAILY enalapril maleate 20 mg PO DAILY 90 days hydrochlorothiazide 12.5 mg PO DAILY 90 days lancets Test blood sugar once a day lancets (FreeStyle Lancets) As directed metformin ER 500 mg PO BID 90 days tamsulosin 0.4 mg PO BEDTIME 90 days HPI Comments Details: Bertram is a pleasant [place] male. He is a patient of Dr. Casarez. He seen for the following urologic conditions - increasing PSA - nocturia - weakness of stream Translation provided by daughter PSA remains stable Happy with current urinary stream - nocturia 1-2 with 4 hr Does have some urination before going to bed Has had trouble managing blood glucose Current PVR 40cc, PVR 0 12 month follow-up Increasing PSA PSA moved from 2.0 to 3.0 over 2019 Associated with weakness of stream and increasing nocturia Current therapy Flomax 0.4 mg PSA 11/20 2.95, 02/20 1.95, 10/24 2.0, 10/25 2.7, 10/26 2.3 PFSH Medical History Elevated cholesterol BPH (benign prostatic hyperplasia) HTN (hypertension) Surgical History History of appendectomy H/O colonoscopy Social History Housing: House Patient Tobacco Use Status: Former Tobacco user Quit Date: 8 yrs ago Years Smoked: 8 years ago e-Cigarette/Vaping Use: Never Used Second Hand Smoke Exposure: No service: No Current occupational status: disabled Cognitive needs: No Hearing needs: No Vision needs: Yes Review of Systems Const Denies chills and Denies fever(s) Card Reports no additional complaints and Denies syncope Resp Denies cough GI Denies abdominal pain and Denies heartburn Reports as per HPI and Denies change in libido Neuro Denies syncope Psych Denies change in libido Endo Denies change in libido Physical Exam Const General: cooperative, healthy appearing, comfortable and no acute distress Orientation/consciousness: patient oriented x3 HEENT Face and sinus: Yes normal facial exam Mouth: moist mucous membranes Neck Neck: Yes normal visual inspection, Yes full ROM and Yes trachea midline Chest Chest palpation & inspection: normal inspection of the chest Resp Effort & Inspection: normal respiratory effort, able to speak in complete sentences and no respiratory distress GI Inspection: Yes normal to inspection Back/Spine/Pelvis Cervical Spine: normal cervical lordosis Thoracic/Lumbar Spine: thoracic and lumbar spine normal to inspection Skin General skin exam: no rashes or lesions noted Neuro General: patient oriented x3, gait normal, tone normal and moves all extremities Extrem General: Yes normal to inspection and Yes capillary refill normal Office Procedures Post Void Residual Post Residual Void Post Void Residual (PVR): 43 [id number] Void Residual by ultrasound Assessment & Plan Assessment & Plan (1) BPH w urinary obs/LUTS: Code(s): N40.1 - Benign prostatic hyperplasia with lower urinary tract symptoms; N13.8 - Other obstructive and reflux uropathy Category: Medical (2) Nocturia more than twice per night: Code(s): R35.1 - Nocturia Category: Medical Plan Twelve month follow-up PSA and PVR Orders: Orders Prostate Specific Antigen 364 Days N13.8 - Other obstructive and reflux uropathy, N40.1 - Benign prostatic hyperplasia with lower urinary tract symptoms AMB Post Void Residual by ultrasound Today N13.8 - Other obstructive and reflux uropathy, N40.1 - Benign prostatic hyperplasia with lower urinary tract symptoms Patient Instructions: Imaging studies, laboratory and physical exam results were discussed and reviewed in detail. No major barriers to patient understanding were identified. An opportunity to ask questions regarding the treatment plan was provided. All questions were answered. The patient expressed understanding and agreement with the above treatment plan. The patient is aware they should contact our office by phone for worsening of their current condition or the appearance of new urologic symptoms. Compliance is encouraged with any medications and followup testing that is ordered. It is a privilege to participate in the urologic care of your patient. If you have any questions or concerns regarding treatment for the above conditions, or other urologic issues, please do not hesitate to contact me. The office telephone contact is [phone]. This note is constructed using voice recognition software. While every effort has been made to ensure accuracy final block press operator errors may have been included. Yours sincerely, Dr Prashant Schreiber MD, [facility] - Urology Providers of Expert, Compassionate Care for the Genitourinary System
== END 2023-12-24 10:36 | disposition home or self-care (01) ==
PROVIDERS: Visit Provider Urology
DX: N40.1 Benign prostatic hyperplasia with lower urinary tract symptoms (principal); N13.8 Other obstructive and reflux uropathy; R35.1 Nocturia
CPT/HCPCS: 99213

== ENCOUNTER → 2023-12-24 09:58 | Outpatient (BNVA) | payer MEDICARE, MEDICAID, SELFPAY | PROVIDERS: Visit Provider Urology | DX: N40.1 Benign prostatic hyperplasia with lower urinary tract symptoms (principal); N13.8 Other obstructive and reflux uropathy; R35.1 Nocturia; R39.12 Poor urinary stream | CPT/HCPCS: 51798; 99212 ==

== ENCOUNTER 2024-04-30 10:06 | Outpatient (AMB) | payer MEDICARE, MEDICAID, SELFPAY ==
[2024-04-30 10:08] VITALS: BP 122/70; PULSE 83; O2SAT 97; BMI 27.6
--- NOTE | 2024-04-30 10:08 | A.OFFPC_ITS ---
Vital Signs 04/30/24 10:08 Height 5 ft 6 in Weight 171 lb BMI 27.6 BP 122/70 Blood Pressure Location Rt brachial Position Sitting Pulse 83 Pulse Source Pulse Oximeter Pulse Oximetry (%) 97 Oxygen Delivery Method Room Air Intake Visit Reasons: 4 MO F/U Intake Note: pt is here for 4month follow up, A1c done today Electronic Equipment Installer Required: Yes Accompanied by: Self / Same As Patient Allergies No Known Allergies Allergy (Verified 04/30/24 10:08) Tobacco use date assessed: 10/09/23 Fall risk assessment: No Falls in past year Last assessed Fall Risk: 04/30/24 Dental Screening Dental Screen Date: 10/09/23 HPI 4 MO F/U HPI Details Pt is a diabetic, on an ROSALVA and a statin. A1C in office today is 7.4. Due for microalbumin, will order. Denies polyuria, polydipsia, and neuropathy. Pt denies any signs and symptoms of hypoglycemia and does know how to correct it. Will increase metformin from 500mg bid to 1000mg bid. HTN: Blood pressure is stable, managed with amlodipine 2.5mg, enalapril 20mg, and hydrochlorothiazide 12.5mg. Denies chest pain, shortness of breath, headache, dizziness, and blurred vision. [facility] Medical History Elevated cholesterol BPH (benign prostatic hyperplasia) HTN (hypertension) Surgical History History of appendectomy H/O colonoscopy Social History Housing: House Patient Tobacco Use Status: Former Tobacco user Years Smoked: 8 years ago e-Cigarette/Vaping Use: Never Used Second Hand Smoke Exposure: No service: No Current occupational status: disabled Cognitive needs: No Hearing needs: No Vision needs: Yes Questionnaire PHQ-9 Over the last 2 weeks, how often have you been bothered by any of the following problems? 1. Little interest or pleasure in doing things: not at all 2. Feeling down, depressed, or hopeless: not at all 3. Trouble falling or staying asleep, or sleeping too much: not at all 4. Feeling tired or having little energy: not at all 5. Poor appetite or overeating: not at all 6. Feeling bad about yourself - or that you are a failure or have let yourself or your family down: not at all 7. Trouble concentrating on things, such as reading the newspaper or watching television: not at all 8. Moving or speaking so slowly that other people could have noticed. Or the opposite - being so fidgety or restless that you have been moving around a lot more than usual: not at all 9. Thoughts that you would be better off or of hurting yourself in some way: not at all Total score: 0 Depression Screening Interpretation: Negative Depression Screening Done: Yes 67342 - PHQ-9 Billing: Yes Source: Developed by Drs. Juan Carlos Quintana, Suzette Villalpando, Ronald Goodwin and colleagues, with an educational kailee from [employer]. Thrive Questionnaire Date Thrive assessed: 04/30/24 I am a: Patient What is your living situation today?: I have a steady place to live Within the past 12 months, did the food you bought not last and you didn't have the money to get more?: Never true Within the past 12 months, did you worry whether your food would run out before you got money to buy more?: Never true Do you have trouble paying for medicines?: No Do you have trouble getting transportation to medical appointments?: No Do you have trouble paying your heating and electricity bill?: No Do you have trouble taking care of your child, family member or friend?: No Do you have trouble with day-to-day activities such as bathing, preparing meals, shopping, managing finances, etc.?: No Are you currently unemployed and looking for a job?: No Are you interested in more education?: No Please select the resources that you would like help with: None Currently or been in a relationship where the following occur: No concerns reported THRIVE Score: 0 AUDIT C Alcohol Use Questionnaire (AUDIT-C) 1. How often do you have a drink containing alcohol?: Never 3. How often do you have six or more drinks on one occasion?: Never Total Score: 0 Score Reviewed/Action Taken: Yes LO-7 AMB Questionnaire LO-7 Date LO - 7 assessed: 04/30/24 Feeling nervous, anxious, or on edge: 0 = Not at all Not being able to stop or control worryin = Not at all Worrying too much about different things: 0 = Not at all Trouble relaxin = Not at all Being so restless that it is hard to sit still: 0 = Not at all Becoming easily annoyed or irritable: 0 = Not at all Feeling afraid as if something awful might happen: 0 = Not at all Total LO-7 score (0-4 normal; 5-9 mild; 10-14 moderate; 15-21 severe): 0 Source: Developed by Drs. Juan Carlos Quintana, Suzette Villalpando, Ronald Goodwin and colleagues, with an educational kailee from [employer]. LO-7 Assessment Billing LO-7 Assessment Tool: LO-7 Assessment 01109 Review of Systems Const Reports as per HPI Physical exam (Primary Care) Vital Signs: Last Vital Signs Pulse 83 04/30/24 10:08 BP 122/70 04/30/24 10:08 Pulse Ox 97 04/30/24 10:08 Oxygen Delivery Method Room Air 04/30/24 10:08 BMI result Body Mass Index 27.6 Tobacco/Smoking Status: Tobacco use Status Tobacco use date assessed 10/09/23 04/30/24 10:09 Patient Tobacco Use Status Former Tobacco user 04/30/24 10:09 e-Cigarette/Vaping Use Never Used 04/30/24 10:09 PHQ-9: PHQ-9 Score PHQ-9: Total score 0 04/30/24 10:26 Depression Screening Interpretation: Negative Thrive Assessment: Date of Thrive Assessment Date Thrive assessed 04/30/24 04/30/24 10:09 Currently or been in a relationship where the following occur: No concerns reported Const General: cooperative Orientation/consciousness: patient oriented x3 Resp Effort & Inspection: normal respiratory effort Auscultation: clear to auscultation bilaterally Cardio Rate: regular rate Rhythm: regular rhythm Heart sounds: S1 normal heart sound present, S2 normal heart sound present and Murmur heart sound present systolic (faint) Neuro General: patient oriented x3 Extrem Other: bilat feet: + sensation with use of monofilament, feet intact Psych Appearance: grossly normal Mental Status: mental status grossly normal Speech and movement: Normal speech and movement present Affect: normal affect Attitude: cooperative Thought process: Normal thought process present Thought content: Normal thought content present Insight: Good insight present (Psych) Judgement: Good judgement present (Psych) Immunizations pneumoc 20-sally conj-dip cr(PF) 0.5 mL IM syringe Performing Provider: JUD Osman Performing Location: [facility] [place] [facility] Administered by: Manjit Holt CMA on 04/30/24 10:41 Dose Route Admin Location Dispensed Lot Number Expiration Date NDC [place] 0.5 mL IM Left Deltoid 0.5 mL [id number] 02/19/25 9293-3479-46 Tier 3/[employer] VIS Given Date VIS Provided VIS Publication Date 04/30/24 Single Vaccine 21 Eligibility Eligibility Date Funding Source Not [facility] Eligible 04/30/24 Private Assessment and Plan Assessment & Plan (1) Diabetes: Code(s): E11.9 - Type 2 diabetes mellitus without complications Plan: Increasing metformin from 500mg bid to 1000mg bid, labs ordered (2) HTN (hypertension): Code(s): I10 - Essential (primary) hypertension Plan: Stable currently Plan The patient agreed to the use of a medical reviewer for this encounter. Scribed for JUD Velez by Johnna Matos medical reviewer, on 04/30/2024 at 10:25 EST. Orders: Orders Complete Blood Count Auto Diff Today E11.9 - Type 2 diabetes mellitus without complications Comprehensive [place]. Panel Fast Today E11.9 - Type 2 diabetes mellitus without complications Microalbumin, Random (w Creat) Today E11.9 - Type 2 diabetes mellitus without complications TSH reflex Free T4 Today E11.9 - Type 2 diabetes mellitus without complications UA CC w/rflx Micro + Cult Today E11.9 - Type 2 diabetes mellitus without complications Lipid Panel Today E11.9 - Type 2 diabetes mellitus without complications Pneumococcal 20 Immunization Today Z23 - Encounter for immunization Medications: Changed From metformin ER 500 mg PO BID 90 days 180 tabs 1RF To metformin ER 1,000 mg (2 x 500 mg) PO BID 90 days 360 tabs 1RF Coding Level of Care Code Est Pt Level 3 (15255) Diagnoses Diabetes E11.9 HTN (hypertension) I10 Additional Codes LO-7 Assessment Billing - LO-7 Assessment Tool: LO-7 Assessment [id number] ([id number])
== END 2024-04-30 10:44 | disposition home or self-care (01) ==
PROVIDERS: PCP Nurse Practitioner Family; Visit Provider Nurse Practitioner Family
DX: E11.9 Type 2 diabetes mellitus without complications (principal); I10 Essential (primary) hypertension; Z23 Encounter for immunization
CPT/HCPCS: 90471; 90677; 99213

== ENCOUNTER 2024-06-25 07:53 | Outpatient (REF) | payer MEDICARE, MEDICAID, SELFPAY ==
[2024-06-25 10:08] LABS: MANUAL DIFF FLAG NO
[2024-06-25 10:16] LABS: Basophils Percent Auto 0.5 % (0-2); Eosinophils Absolute Auto 0.6 X10*3/uL (0.0-0.4); Eosinophils Percent Auto 7.2 % (0-4); Hematocrit 41.5 % (42.0-52.0); Hemoglobin 13.8 g/dl (14.0-18.0); Imm Gran Abs Auto 0.02 X10*3/uL (0.00-0.03); Imm Gran Pct Auto 0.2 % (0.0-0.4); Lymphocytes Absolute Auto 2.7 X10*3/uL (1.2-4.9); Lymphocytes Percent Auto 31.7 % (20-40); Mean Corpuscular HGB Conc 33.3 g/dl (31.0-36.0); Mean Corpuscular Hemoglobin 29.2 pg (27.0-33.0); Mean Corpuscular Volume 87.7 fL (80.0-98.0); Mean Platelet Volume 10.6 fL (9.4-12.4); Monocytes Absolute Auto 0.8 X10*3/uL (0.1-1.2); Monocytes Percent Auto 9.6 % (2-11); Neutrophils Absolute Auto 4.4 x10*3/uL (2.0-8.3); Neutrophils Percent Auto 50.8 % (45-73); Platelet Count 246 X10*3/uL (160-400); Red Blood Count 4.73 X10*6/uL (4.60-5.80); Red Cell Distribution Width 13.4 % (11.0-16.0); White Blood Count 8.6 X10*3/uL (4.8-10.8)
[2024-06-25 10:53] LABS: Appearance Urine Turbid; Color Urine Dark Yellow; Glucose Urine UA Negative (Negative); Leukocyte Esterase Urine Moderate (2+) (Negative); Nitrite Urine Negative (Negative); UMIC TRIGGER UACC YES; Urine Blood Moderate (2+) (Negative); Urine Ketones Trace mg/dL (Negative); Urine Protein Trace mg/dL (Neg-Trace)
[2024-06-25 11:13] LABS: Bacteria Urine 1+ (None Seen); Calcium Oxalate Crystals Urine Present; Hyaline Casts Urine 0-2 /LPF (0-2); Squamous Epithelial Cell Urine 0-2 /HPF (0-2); UACC Culture Trigger YES; WBC Urine 21-50 /HPF (0-5)
[2024-06-25 11:15] LABS: Albumin Level 4.2 g/dL (3.5-5.0); Alkaline Phosphatase 73 U/L (39-117); Anion Gap 11 (12-20); Aspartate Amino Transferase 46 U/L (5-37); Bilirubin Total 0.6 mg/dL (0.0-1.0); Blood Urea Nitrogen 12 mg/dL (9-16); Calcium 9.3 mg/dL (8.4-10.2); Carbon Dioxide 26 mmol/L (22-29); Chloride 106 mmol/L (96-108); Cholesterol 140 mg/dL (<200); Estimated Glomerular Filt Rate > 60; Glucose Fasting 105 mg/dL (60-99); HDL Cholesterol 46 mg/dL (>40); LDL Cholesterol Calculated 66 mg/dL (<100); Potassium 3.4 mmol/L (3.3-5.1); Sodium 140 mmol/L (135-145); TSH reflex Free T4 0.72 uIU/mL (0.32-4.0); Total Protein 7.9 g/dL (6.5-8.0); Triglycerides 141 mg/dL (<150)
[2024-06-25 11:18] LABS: Alanine Aminotransferase 48 U/L (0-40)
== END 2024-06-25 07:54 | disposition home or self-care (01) ==
LOC: HO.HMGCLDS 07:53
PROVIDERS: PCP Nurse Practitioner Family; Visit Provider Nurse Practitioner Family
DX: E11.9 Type 2 diabetes mellitus without complications (principal); R82.79 Other abnormal findings on microbiological examination of urine
CPT/HCPCS: 36415; 80053; 80061; 81001; 82043; 82570; 84443; 85025; 87086; 87088; 87186

== ENCOUNTER 2024-07-13 08:27 | Outpatient (REF) | payer MEDICARE, MEDICAID, SELFPAY ==
--- NOTE | ~2024-07-13 | US_ITS ---
EXAMINATION: US COMPLETE ABDOMEN WITH LIVER ELASTOGRAPHY CLINICAL INFORMATION: Abnormal liver function tests. COMPARISON: None available. TECHNIQUE: Real-time imaging of the abdominal viscera. Noninvasive ultrasound liver fibrosis assessment is performed using Latasha ElastPQ point quantification shear wave elastography (pSWE) with a C5-2 MHz transducer. Multiple elastography samples are obtained. FINDINGS: PANCREAS: Normal. The visualized pancreatic head and body are normal in appearance. The remainder of the pancreas is obscured from visualization by the overlying bowel gas. ABDOMINAL AORTA: The proximal, middle, and distal aortic segments are normal in caliber. INFERIOR VENA CAVA: Visualized portions are normal. LIVER: The liver demonstrates normal size, contour and generally increased echogenicity. No focal lesion or intrahepatic biliary duct dilatation. The right lobe measures 13.3 cm in length. The left lobe measures 9.1 cm in length. Portal flow is towards the liver (hepatopetal). Shear wave liver elastography median stiffness is 1.42 m/s (reference: normal median stiffness is 1.3 m/s or less). IQR/median stiffness to assess sampling precision is 0.04 (reference: good quality data set is IQR/median stiffness of 0.15 or less). GALLBLADDER: Normal. The gallbladder is physiologically distended without evidence of stones, sludge, polyps, wall thickening or pericholecystic fluid. COMMON BILE DUCT: Normal in caliber measuring 0.4 cm in diameter. RIGHT KIDNEY: Normal. No hydronephrosis. No renal calculi or focal parenchymal lesions. The kidney measures 10.1 cm in maximum dimension. LEFT KIDNEY: At the interpolar aspect, a 1.3 cm benign, simple cyst is seen, which requires no imaging follow-up. No hydronephrosis. No renal calculi or focal parenchymal lesions. The kidney measures 10.2 cm in maximum dimension. SPLEEN: Normal. The spleen measures 10.7 cm in maximum dimension. FREE FLUID: None. US/US abdomen comp w elastography IMPRESSION: 1. There is generalized increase in hepatic echotexture, consistent with fatty infiltration or hepatocellular disease. Please correlate clinically. No focal hepatic mass or intrahepatic biliary dilatation is seen. 2. Liver elastography: In the absence of other known clinical signs, measurements rule out compensated advanced chronic liver disease. If there are known clinical signs, further testing may be needed for confirmation. REFERENCE: Society of Radiologists in Ultrasound Liver Stiffness Thresholds (2020): LIVER STIFFNESS THRESHOLDS: *Liver Stiffness equal or less than 1.3 m/s: High probability of being normal. *Liver Stiffness less than 1.7 m/s: In the absence of other known clinical signs, rules out compensated advanced chronic liver disease. *Liver Stiffness 1.7-2.1 m/s: Suggestive of compensated advanced chronic liver disease but need further test for confirmation. *Liver Stiffness over 2.1 m/s: Rules in compensated advanced chronic liver disease. *Liver Stiffness over 2.4 m/s: Suggestive of clinically significant portal hypertension. QUALITY OF DATA SET: *IQR/Median value equal or less than 0.15 implies a quality data set. *IQR/Median value over 0.15 implies a poor quality data set. SIGNIFICANT CHANGE FROM PRIOR EXAM: Significant change if liver stiffness measurement is 10% or greater from prior exam. OTHER CONSIDERATIONS: The stage of liver fibrosis may be overestimated in the setting of acute hepatitis, liver inflammation, elevated liver function tests, hepatic vascular congestion, obstructive cholestasis, non-fasting state, and infiltrative diseases such as amyloidosis and lymphoma. In some patients with NAFLD, the liver stiffness thresholds for compensated advanced chronic liver disease may be lower. In causes other than viral hepatitis and NAFLD, liver stiffness thresholds are not well established. Electronically signed by: Darwin Jones MD 07/13/2024 11:00 AM [facility]
== END 2024-07-13 08:28 | disposition home or self-care (01) ==
LOC: HO.US 08:27
PROVIDERS: PCP Nurse Practitioner Family; Visit Provider Nurse Practitioner Family
DX: R74.8 Abnormal levels of other serum enzymes (principal)
CPT/HCPCS: 76700; 76981

== ENCOUNTER 2024-09-17 08:35 | Outpatient (REF) | payer MEDICARE, MEDICAID, SELFPAY ==
[2024-09-17 13:09] LABS: Appearance Urine Turbid; Color Urine Dark Yellow; Glucose Urine UA Negative (Negative); Leukocyte Esterase Urine Moderate (2+) (Negative); Nitrite Urine Negative (Negative); PH 5.5 (5.0-9.0); Specific Gravity - Urine 1.025 (1.005-1.025); UMIC TRIGGER UACC YES; Urine Blood Small (1+) (Negative); Urine Ketones Trace mg/dL (Negative); Urine Protein Trace mg/dL (Neg-Trace)
[2024-09-17 13:14] LABS: Bacteria Urine None Seen (None Seen); Hyaline Casts Urine 0-2 /LPF (0-2); Squamous Epithelial Cell Urine 0-2 /HPF (0-2); UACC Culture Trigger YES
== END 2024-09-17 08:36 | disposition home or self-care (01) ==
LOC: HO.HMGCLDS 08:35
PROVIDERS: PCP Nurse Practitioner Family; Visit Provider Nurse Practitioner Family
DX: E11.9 Type 2 diabetes mellitus without complications (principal); N39.0 Urinary tract infection, site not specified
CPT/HCPCS: 81001; 83036; 87086; 96127; 99212

== ENCOUNTER 2024-09-17 08:35 | Outpatient (AMB) | payer MEDICARE, MEDICAID, SELFPAY ==
[2024-09-17 09:10] VITALS: BP 122/74; PULSE 77; O2SAT 96; BMI 27.6
--- NOTE | 2024-09-17 09:10 | A.OFFPC_ITS ---
Vital Signs 09/17/24 09:10 Height 5 ft 6 in Weight 171 lb BMI 27.6 BP 122/74 Blood Pressure Location Rt brachial Position Sitting Pulse 77 Pulse Source Pulse Oximeter Pulse Oximetry (%) 96 Oxygen Delivery Method Room Air Intake Visit Reasons: 4 month follow up Intake Note: pt is here for 4 mon follow up,A1c done in office today Volunteer Services Specialist Required: No Accompanied by: Self / Same As Patient Allergies No Known Allergies Allergy (Verified 09/17/24 09:13) Medication List - Last Reconciled 09/17/24 by KENDRA OsmanP- amlodipine 2.5 mg PO DAILY 90 days atorvastatin 20 mg PO QPM blood sugar diagnostic (FreeStyle Lite Strips) test blood sugar once a day blood-glucose meter (ironSourceStyle Lite Meter kit) Use to check blood sugar twice da joaquin; once fasting and a random sugar cholecalciferol (vitamin D3) 50 mcg PO DAILY enalapril maleate 20 mg PO DAILY 90 days hydrochlorothiazide 12.5 mg PO DAILY 90 days lancets Test blood sugar once a day lancets (FreeStyle Lancets) Test blood sugar once a day metformin ER 1,000 mg (2 x 500 mg) PO BID 90 days tamsulosin 0.4 mg PO BEDTIME 90 days Tobacco use date assessed: 09/17/24 Fall risk assessment: No Falls in past year Last assessed Fall Risk: 09/17/24 Dental Screening Dental Screen Date: 09/17/24 Did you have a dental visit in the last 12 months?: Yes Did you have a dental problem in the last 6 months where you did not have access to dental care?: No Was dental information given to patient?: Patient has dentist HPI 4 month follow up HPI Details Chief Complaint Follow-up for diabetes management. History of Present Illness The patient is a 69-year-old male presenting with diabetes mellitus, type 2 for routine management and follow-up. Currently, his glycated hemoglobin (A1c) level is reported at 6.9%. He has been managing his diabetes with no significant complications reported at this visit. The patient denies symptoms commonly associated with diabetes complications, including chest pain, shortness of breath, neuropathy, polyuria, and polydipsia. He has previously demonstrated good control with no cognitive impairments or functional decline reported, and he adheres to dietary advice, although there is a noted tendency to consume more sugary foods during the holidays. Social History - Family status: Attended the appointmen t with his daughter who assists with translation. - Nutrition: Tendency to increase intake of chocolate and sugary fruits during the holidays. Health Maintenance - Discussed adherence to dietary recomme ndations for diabetes management. - A future eye examination is scheduled for continued diabetes-related health maintenance. Review of Systems - Cardiovascular: Denies chest pain. - Respiratory: Denies shortness of breat h. - Neurological: Denies neuropathy. - Genitourinary: Denies polyuria and blayne ydipsia. Physical Exam General: Cooperative, healthy appearing, comfortable, no acute distress and well developed Orientation: Patient oriented x3 Limitations: No limitations Head: Normal to inspection Ears: Hearing grossly normal bilaterally Nose: Normal external nose present Face and sinus: Normal facial exam Eyes: Appearance normal, both eyes and all related structures Neck: Normal visual inspection and Yes full ROM Respiratory: Normal respiratory effort and able to speak in complete sentences. Clear to auscultation bilaterally Cardiovascular: Regular rate and rhythm. Normal S1 and S2 GI: Normal to inspection. Soft to palpation and nontender Skin: No rashes or lesions noted Neuro: Patient oriented x3 Extremities: Feet were intact. Good sensation with use of monofilament to bilateral feet. Normal to inspection Results - Labs: Hemoglobin A1c is 6.9%. Plan - Continue current diabetes management p earnest as A1c is within acceptable range. - Reinforce dietary management focusing on reducing high sugar intake, e specially during holidays. - Ensure compliance with the scheduled e ye examination to monitor for diabetes- related complications. Patient was informed and verbally consented to the use of an ambient scribe for clinic note documentation during this visit. Discussion Notes I discussed the current state of the patient's diabetes, noting that the glycated hemoglobin level of 6.9% is acceptable, and therefore, no changes in the current management plan are necessary. We reviewed the importance of maintaining a healthy diet, particularly with regard to reducing sugary foods during periods such as holidays. I emphasized the significance of regular eye examinations for early detection of possible diabetes-related complications. The patient was informed of the need to continue monitoring and management at regular intervals to maintain optimal health. Patient Instructions - Maintain current diabetes medication a nd management routine. - Keep scheduled eye examination as plan franco. - Be mindful of dietary choices, especia lly limiting sugary foods during holiday seasons. - Continue regular follow-ups for diabet es monitoring and management. [facility] Medical History Elevated cholesterol BPH (benign prostatic hyperplasia) HTN (hypertension) Surgical History History of appendectomy H/O colonoscopy Social History Housing: House Patient Tobacco Use Status: Former Tobacco user Years Smoked: 8 years ago e-Cigarette/Vaping Use: Never Used Second Hand Smoke Exposure: No service: No Current occupational status: disabled Cognitive needs: No Hearing needs: No Vision needs: Yes Questionnaire PHQ-9 Over the last 2 weeks, how often have you been bothered by any of the following problems? 1. Little interest or pleasure in doing things: not at all 2. Feeling down, depressed, or hopeless: not at all 3. Trouble falling or staying asleep, or sleeping too much: not at all 4. Feeling tired or having little energy: not at all 5. Poor appetite or overeating: not at all 6. Feeling bad about yourself - or that you are a failure or have let yourself or your family down: not at all 7. Trouble concentrating on things, such as reading the newspaper or watching television: not at all 8. Moving or speaking so slowly that other people could have noticed. Or the opposite - being so fidgety or restless that you have been moving around a lot more than usual: not at all 9. Thoughts that you would be better off or of hurting yourself in some way: not at all Total score: 0 Depression Screening Interpretation: Negative Depression Screening Done: Yes 27295 - PHQ-9 Billing: Yes Source: Developed by Drs. Juan Carlos Quintana, Suzette Villalpando, Ronald Goodwin and colleagues, with an educational kailee from [employer]. Thrive Questionnaire Date Thrive assessed: 09/17/24 I am a: Parent/Caregiver What is your living situation today?: I have a steady place to live Within the past 12 months, did the food you bought not last and you didn't have the money to get more?: I choose not to answer this question Within the past 12 months, did you worry whether your food would run out before you got money to buy more?: I choose not to answer this question Do you have trouble paying for medicines?: No Do you have trouble getting transportation to medical appointments?: No Do you have trouble paying your heating and electricity bill?: No Do you have trouble taking care of your child, family member or friend?: No Do you have trouble with day-to-day activities such as bathing, preparing meals, shopping, managing finances, etc.?: No Are you currently unemployed and looking for a job?: Yes Are you interested in more education?: No Please select the resources that you would like help with: None Currently or been in a relationship where the following occur: No concerns reported THRIVE Score: 0 AUDIT C Alcohol Use Questionnaire (AUDIT-C) 1. How often do you have a drink containing alcohol?: Never 3. How often do you have six or more drinks on one occasion?: Never Total Score: 0 Score Reviewed/Action Taken: Yes LO-7 AMB Questionnaire LO-7 Date LO - 7 assessed: 09/17/24 Feeling nervous, anxious, or on edge: 0 = Not at all Not being able to stop or control worryin = Not at all Worrying too much about different things: 0 = Not at all Trouble relaxin = Not at all Being so restless that it is hard to sit still: 0 = Not at all Becoming easily annoyed or irritable: 0 = Not at all Feeling afraid as if something awful might happen: 0 = Not at all Total LO-7 score (0-4 normal; 5-9 mild; 10-14 moderate; 15-21 severe): 0 Source: Developed by Drs. Juan Carlos Quintana, Suzette Villalpando, Ronald Goodwin and colleagues, with an educational kailee from [employer]. LO-7 Assessment Billing LO-7 Assessment Tool: LO-7 Assessment 84393 Physical exam (Primary Care) Vital Signs: Last Vital Signs Pulse 77 09/17/24 09:10 BP 122/74 09/17/24 09:10 Pulse Ox 96 09/17/24 09:10 Oxygen Delivery Method Room Air 09/17/24 09:10 BMI result Body Mass Index 27.6 Tobacco/Smoking Status: Tobacco use Status Tobacco use date assessed 09/17/24 09/17/24 09:14 Patient Tobacco Use Status Former Tobacco user 09/17/24 09:11 e-Cigarette/Vaping Use Never Used 09/17/24 09:11 PHQ-9: PHQ-9 Score PHQ-9: Total score 0 09/17/24 09:14 Depression Screening Interpretation: Negative Thrive Assessment: Date of Thrive Assessment Date Thrive assessed 09/17/24 09/17/24 09:14 Currently or been in a relationship where the following occur: No concerns reported Results AMB Hemoglobin A1c AMB Hemoglobin A1c 6.9 % Last Edit by Manjit Holt CMA on 09/17/24 09: 29 Results Reviewed Results Reviewed: Laboratory Last Values Hgb A1c (Clinic) 6.9 % (4.0-6.0) H 09/17/24 09:10 Coding Level of Care Code Est Pt Level 3 (32356) Diagnoses Diabetes E11.9 Additional Codes LO-7 Assessment Billing - LO-7 Assessment Tool: LO-7 Assessment 52683 ([id number]) PHQ-9 - 52917 - PHQ-9 Billing: Yes ([id number]) Assessment & Plan Assessment & Plan (1) Diabetes: Code(s): E11.9 - Type 2 diabetes mellitus without complications Category: Medical Plan . Orders: Orders AMB Hemoglobin A1c Today Z13.9 - Encounter for screening, unspecified UA CC w/rflx Micro + Cult Today N39.0 - Urinary tract infection, site not specified
== END 2024-09-17 10:21 | disposition home or self-care (01) ==
PROVIDERS: PCP Nurse Practitioner Family; Visit Provider Nurse Practitioner Family
DX: Z13.9 Encounter for screening, unspecified (principal); E11.9 Type 2 diabetes mellitus without complications

== ENCOUNTER 2024-11-03 08:20 | Outpatient (REF) | payer MEDICARE, MEDICAID, SELFPAY ==
[2024-11-03 09:56] LABS: MANUAL DIFF FLAG NO
[2024-11-03 10:02] LABS: Appearance Urine Clear; Color Urine Yellow; Glucose Urine UA Negative (Negative); Leukocyte Esterase Urine Trace (Negative); Nitrite Urine Negative (Negative); Specific Gravity - Urine 1.015 (1.005-1.025); UMIC TRIGGER UACC YES; Urine Blood Small (1+) (Negative); Urine Ketones Negative (Negative); Urine Protein Negative (Neg-Trace)
[2024-11-03 10:03] LABS: Basophils Percent Auto 0.6 % (0-2); Eosinophils Absolute Auto 0.5 X10*3/uL (0.0-0.4); Eosinophils Percent Auto 7.6 % (0-4); Hemoglobin 13.7 g/dl (14.0-18.0); Imm Gran Abs Auto 0.02 X10*3/uL (0.00-0.03); Imm Gran Pct Auto 0.3 % (0.0-0.4); Immature Retic Fraction 14.1 % (2.3-13.4); Lymphocytes Absolute Auto 2.9 X10*3/uL (1.2-4.9); Lymphocytes Percent Auto 43.6 % (20-40); Mean Corpuscular HGB Conc 32.6 g/dl (31.0-36.0); Mean Corpuscular Hemoglobin 28.7 pg (27.0-33.0); Mean Corpuscular Volume 87.9 fL (80.0-98.0); Mean Platelet Volume 10.6 fL (9.4-12.4); Monocytes Absolute Auto 0.6 X10*3/uL (0.1-1.2); Monocytes Percent Auto 9.1 % (2-11); Neutrophils Absolute Auto 2.6 x10*3/uL (2.0-8.3); Neutrophils Percent Auto 38.8 % (45-73); Platelet Count 213 X10*3/uL (160-400); Red Blood Count 4.78 X10*6/uL (4.60-5.80); Red Cell Distribution Width 13.2 % (11.0-16.0); Retic HGB Equivalent 34.9 pg (30.0-35.0); Reticulocytes Absolute 0.098 X10*6/uL (0.026-0.095); White Blood Count 6.6 X10*3/uL (4.8-10.8)
[2024-11-03 10:14] LABS: Bacteria Urine Trace (None Seen); Hyaline Casts Urine 0-2 /LPF (0-2); RBC Urine 0-2 /HPF (0-2); Squamous Epithelial Cell Urine 0-2 /HPF (0-2); WBC Urine 0-5 /HPF (0-5)
[2024-11-03 10:16] LABS: Iron 82 mcg/dL (45-160); Percent Iron Saturation 30 % (15-50); Total Iron Binding Capacity 275 mcg/dL (228-428); Unsaturated Iron Binding 193 ug/dL
[2024-11-03 10:20] LABS: Haptoglobin 144 mg/dL (40-268)
[2024-11-03 10:30] LABS: Lactate Dehydrogenase 243 U/L (118-273)
[2024-11-03 10:45] LABS: Ferritin 659 ng/mL (20-250)
[2024-11-03 11:08] LABS: Vitamin B12 443 pg/mL (200-900)
[2024-11-04 13:23] LABS: Hematocrit 42.4 % (38.5-50.0); Hemoglobin 14.1 g/dL (13.2-17.1); MCH 29.6 pg (27.0-33.0); MCV 88.9 fL (80.0-100.0); RBC 4.77 Million/uL (4.20-5.80); RDW 12.9 % (11.0-15.0)
== END 2024-11-03 08:21 | disposition home or self-care (01) ==
LOC: HO.HMGCLDS 08:20
PROVIDERS: PCP Nurse Practitioner Family; Visit Provider Nurse Practitioner Family
DX: D64.9 Anemia, unspecified (principal)
CPT/HCPCS: 36415; 81001; 81003; 82607; 82728; 82746; 83010; 83020; 83540; 83615; 85014; 85018; 85025; 85041; 85045

== ENCOUNTER 2024-12-24 07:55 | Outpatient (REF) | payer MEDICARE, MEDICAID, SELFPAY ==
[2024-12-24 11:23] LABS: Prostate Specific Antigen 2.79 ng/mL (<0.05-4.0)
== END 2024-12-24 07:56 | disposition home or self-care (01) ==
LOC: HO.HMGCLDS 07:55
PROVIDERS: PCP Nurse Practitioner Family; Visit Provider Urology
DX: N40.1 Benign prostatic hyperplasia with lower urinary tract symptoms (principal); N13.8 Other obstructive and reflux uropathy; Z12.5 Encounter for screening for malignant neoplasm of prostate
CPT/HCPCS: 36415; 84153

== ENCOUNTER 2025-01-20 11:13 | Outpatient (AMB) | payer MEDICARE, MEDICAID, SELFPAY ==
[2025-01-20 11:22] VITALS: BP 126/80; PULSE 78; O2SAT 98; BMI 27.4
--- NOTE | 2025-01-20 11:22 | A.OFFPC_ITS ---
Vital Signs 01/20/25 11:22 Height 5 ft 6 in Weight 170 lb BMI 27.4 BP 126/80 Blood Pressure Location Lt brachial Position Sitting Pulse 78 Pulse Source Pulse Oximeter Pulse Oximetry (%) 98 Intake Visit Reasons: 4 month follow up Merchandising Specialist Required: No Merchandising Specialist Name: patient declined Allergies No Known Allergies Allergy (Verified 01/20/25 11:22) Medication List - Last Reconciled 01/20/25 by Darwin Del Angel, BLADDER CHANGER- amlodipine 2.5 mg PO DAILY 90 days atorvastatin 20 mg PO QPM blood sugar diagnostic (FreeStyle Lite Strips) test blood sugar once a day blood-glucose meter (FreeStyle Lite Meter kit) Use to check blood sugar twice daily; once fasting and a random sugar cholecalciferol (vitamin D3) 50 mcg PO DAILY enalapril maleate 20 mg PO DAILY 90 days hydrochlorothiazide 12.5 mg PO DAILY 90 days lancets (FreeStyle Lancets) Test blood sugar once a day lancets (FreeStyle Lancets) USE 1 UNIT TO CHECK GLUCOSE ONCE DAILY metformin ER 1,000 mg (2 x 500 mg) PO BID 90 days tamsulosin 0.4 mg PO BEDTIME 90 days Tobacco use date assessed: 01/20/25 Fall risk assessment: No Falls in past year Last assessed Fall Risk: 01/20/25 Dental Screening Dental Screen Date: 09/17/24 HPI 4 month follow up HPI Details Chief Complaint Follow-up visit for diabetes management. History of Present Illness The patient is a 69-year-old male presenting for a routine follow-up regarding Type 2 Diabetes Mellitus. His recent Hemoglobin A1c is at 6.6, reflecting effective glycemic control. He denies experiencing symptoms such as neuropathy, polyuria, or polydipsia. His sensory examination with monofilament is normal. He is a former smoker, with a history extending over 31 years, having quit smoking 8 years ago. An up-to-date eye examination has been conducted. Cardiovascular assessment noted a faint systolic murmur without associated respiratory findings. Elevated ferritin, will cont to monitor and order a hemochromatosis screen. Pt sebastian snot drink alcohol and hasnt for many years. Social History - Lives with his daughter, who assists w [employer] translation. - Former smoker, ceased 8 years ago, wit h a history of 31 years of smoking one pack per day. Health Maintenance - Hemoglobin A1c today: 6.6 - Monitoring blood pressure at home - Eye examination is current and up to d ate - Referral to the low-dose CAT scan prog felipe for lung evaluation Review of Systems - Neurological: Denies neuropathies. - Genitourinary: Denies polyuria. - Endocrine: Denies polydipsia. - Respiratory: Lungs are clear upon ausc ultation as reported. - Sensory: Reports normal sensation with the use of monofilament on feet. Physical Exam General: Cooperative, healthy appearing, comfortable, no acute distress and well developed Orientation: Patient oriented x3 Limitations: No limitations Head: Normal to inspection Ears: Hearing grossly normal bilaterally Nose: Normal external nose present Face and sinus: Normal facial exam Eyes: Appearance normal, both eyes and all related structures, reports his eye exam is up to date Neck: Normal visual inspection and Yes full ROM Respiratory: Normal respiratory effort and able to speak in complete sentences. Clear to auscultation bilaterally Cardiovascular: Regular rate and rhythm. Normal S1 and S2, faint systolic murmur GI: Normal to inspection. Soft to palpation and nontender Skin: No rashes or lesions noted Neuro: Patient oriented x3, positive sensation with the use of monofilament feet were intact Extremities: Normal to inspection Results - Labs: Hemoglobin A1c 6.6 Plan I will continue to manage the patient's Type 2 Diabetes Mellitus, focusing on maintaining his excellent Hemoglobin A1c level. Home blood pressure monitoring remains vital to prevent any future complications. Due to his former smoking habits, a low-dose CAT scan is recommended for further pulmonary evaluation. Current management will remain unchanged with regular eye examinations to rule out diabetic complications. The patient will also continue his follow-up with urology. Discussion Notes I reviewed the significance of the patient's current Hemoglobin A1c level of 6.6, signifying well-managed diabetes. I explained the necessity of ongoing blood pressure monitoring at home and reiterated the importance of follow-up care due to his past smoking history. The low-dose CAT scan referral was discussed as a precautionary measure to assess any lung-related changes. I ensured the patient understood the importance of routine eye examinations. I also discussed the potential risks and benefits associated with his current management plan and emphasized continuity of care with urology. Patient Instructions - Continue current diabetes medications and monitor blood glucose levels as advised. - Regularly check blood pressure at home and record readings. - Follow up with referred low-dose CAT s can for lung evaluation. - Maintain current eye exam schedule. - Continue to abstain from smoking. - Schedule follow-ups with urology as ne christos. [facility] Medical History Elevated cholesterol BPH (benign prostatic hyperplasia) HTN (hypertension) Surgical History History of appendectomy H/O colonoscopy (~06/28/22) Social History Housing: House Patient Tobacco Use Status: Former Tobacco user Years Smoked: 8 years ago e-Cigarette/Vaping Use: Never Used Second Hand Smoke Exposure: No service: No Current occupational status: disabled Cognitive needs: No Hearing needs: No Vision needs: Yes Questionnaire Thrive Questionnaire Date Thrive assessed: 09/17/24 I am a: Parent/Caregiver What is your living situation today?: I have a steady place to live Within the past 12 months, did the food you bought not last and you didn't have the money to get more?: I choose not to answer this question Within the past 12 months, did you worry whether your food would run out before you got money to buy more?: I choose not to answer this question Do you have trouble paying for medicines?: No Do you have trouble getting transportation to medical appointments?: No Do you have trouble paying your heating and electricity bill?: No Do you have trouble taking care of your child, family member or friend?: No Do you have trouble with day-to-day activities such as bathing, preparing meals, shopping, managing finances, etc.?: No Are you currently unemployed and looking for a job?: Yes Are you interested in more education?: No Please select the resources that you would like help with: None Currently or been in a relationship where the following occur: No concerns reported THRIVE Score: 0 LO-7 AMB Questionnaire LO-7 Date LO - 7 assessed: 09/17/24 Source: Developed by Drs. Juan Carlos Quintana, Suzette Villalpando, Ronald Goodwin and colleagues, with an educational kailee from [employer]. Physical exam (Primary Care) Vital Signs: Last Vital Signs Pulse 78 01/20/25 11:22 BP 126/80 01/20/25 11:22 Pulse Ox 98 01/20/25 11:22 BMI result Body Mass Index 27.4 Tobacco/Smoking Status: Tobacco use Status Tobacco use date assessed 01/20/25 01/20/25 11:32 Patient Tobacco Use Status Former Tobacco user 01/20/25 11:32 e-Cigarette/Vaping Use Never Used 01/20/25 11:32 Thrive Assessment: Date of Thrive Assessment Date Thrive assessed 09/17/24 01/20/25 11:32 Currently or been in a relationship where the following occur: No concerns reported Coding Level of Care Code Est Pt Level 3 (70220) Diagnoses Diabetes E11.9 Elevated ferritin R79.89 Smoker F17.200 Immunizations incomplete Z.39 Assessment & Plan Assessment & Plan (1) Diabetes: Code(s): E11.9 - Type 2 diabetes mellitus without complications Category: Medical (2) Elevated ferritin: Code(s): R79.89 - Other specified abnormal findings of blood chemistry Category: Medical (3) Smoker: Code(s): F17.200 - Nicotine dependence, unspecified, uncomplicated Category: Social Hx (4) Immunizations incomplete: Code(s): Z.39 - Other underimmunization status Category: Medical Plan . Orders: Orders Complete Blood Count Auto Diff Today E11.9 - Type 2 diabetes mellitus without complications Lipid Panel Today E11.9 - Type 2 diabetes mellitus without complications DNA Analysis Hemochromatosis Today R79.89 - Other specified abnormal findings of blood chemistry IRON PROFILE Today R79.89 - Other specified abnormal findings of blood chemistry Comprehensive [place]. Panel Fast Today E11.9 - Type 2 diabetes mellitus without complications TSH reflex Free T4 Today E11.9 - Type 2 diabetes mellitus without complications UA CC w/rflx Micro + Cult Today E11.9 - Type 2 diabetes mellitus without compl ications Ferritin Today R79.89 - Other specified abnormal findings of blood chemistry Varicella IgG Antibody Today Z.39 - Other underimmunization status MMR IgG Measles Mumps Rubella Today Z39 - Other underimmunization status Referrals Lung Cancer Screening Referral F17.200 - Nicotine dependence, unspecified, uncomplicated
== END 2025-01-20 16:31 | disposition home or self-care (01) ==
LOC: HO.HMCC 11:14
PROVIDERS: PCP Nurse Practitioner Family; Visit Provider Nurse Practitioner Family
DX: Z13.9 Encounter for screening, unspecified (principal)

== ENCOUNTER → 2025-01-20 11:13 | Outpatient (BNVA) | payer MEDICARE, MEDICAID, SELFPAY | PROVIDERS: PCP Nurse Practitioner Family; Visit Provider Nurse Practitioner Family | DX: N39.0 Urinary tract infection, site not specified (principal); E11.9 Type 2 diabetes mellitus without complications; R79.89 Other specified abnormal findings of blood chemistry; F17.200 Nicotine dependence, unspecified, uncomplicated; Z71.6 Tobacco abuse counseling | CPT/HCPCS: 83036; 99212 ==

== ENCOUNTER 2025-02-05 10:45 | Outpatient (AMB) | payer MEDICARE, MEDICAID, SELFPAY ==
--- NOTE | 2025-02-05 10:50 | A.OFFVIS_ITS ---
Intake Visit Reasons: 1y/PSA/PVR/micro hematuria Intake Note: Patient is Present for 1 year Follow Up/PSA/PVR/Micro hematuria Urology Medication: Tamsulosin Antibiotic Allergies: None Blood Thinners: None PVR:0ml Allergies No Known Allergies Allergy (Verified 02/05/25 10:55) HPI Comments Details: Bertram is a pleasant Yi male. He is a patient of Dr. Casarez. He seen for the following urologic conditions - increasing PSA - nocturia - weakness of stream Translation provided by daughter PSA remains stable Low PVR 1+ blood, 2+ leukocytes Current PVR 40cc, PVR 0 12 month follow-up Increasing PSA PSA moved from 2.0 to 3.0 over 2019 Associated with weakness of stream and increasing nocturia Current therapy Flomax 0.4 mg PSA 11/20 2.95, 02/20 1.95, 10/24 2.0, 10/25 2.7, 10/26 2.3, 12/25 2.8 PFSH Medical History Elevated cholesterol BPH (benign prostatic hyperplasia) HTN (hypertension) Surgical History History of appendectomy H/O colonoscopy (~06/28/22) Social History Housing: House Patient Tobacco Use Status: Former Tobacco user Years Smoked: 8 years ago e-Cigarette/Vaping Use: Never Used Second Hand Smoke Exposure: No service: No Current occupational status: disabled Cognitive needs: No Hearing needs: No Vision needs: Yes Review of Systems Const Denies chills and Denies fever(s) Card Reports no additional complaints and Denies syncope Resp Denies cough GI Denies abdominal pain and Denies heartburn Reports as per HPI and Denies change in libido Neuro Denies syncope Psych Denies change in libido Endo Denies change in libido Physical Exam Const General: cooperative, healthy appearing, comfortable and no acute distress Orientation/consciousness: patient oriented x3 HEENT Face and sinus: Yes normal facial exam Mouth: moist mucous membranes Neck Neck: Yes normal visual inspection, Yes full ROM and Yes trachea midline Chest Chest palpation & inspection: normal inspection of the chest Resp Effort & Inspection: normal respiratory effort, able to speak in complete sentences and no respiratory distress GI Inspection: Yes normal to inspection Back/Spine/Pelvis Cervical Spine: normal cervical lordosis Thoracic/Lumbar Spine: thoracic and lumbar spine normal to inspection Skin General skin exam: no rashes or lesions noted Neuro General: patient oriented x3, gait normal, tone normal and moves all extremities Extrem General: Yes normal to inspection and Yes capillary refill normal Assessment & Plan Assessment & Plan (1) Nocturia more than twice per night: Code(s): R35.1 - Nocturia Category: Medical (2) BPH w urinary obs/LUTS: Code(s): N40.1 - Benign prostatic hyperplasia with lower urinary tract symptoms; N13.8 - Other obstructive and reflux uropathy Category: Medical Plan Twelve month follow-up PSA, refill med Orders: Orders Prostate Specific Antigen 12 Months N13.8 - Other obstructive and reflux uropathy, N40.1 - Benign prostatic hyperplasia with lower urinary tract symptoms Patient Instructions: This note is constructed using voice recognition software. While every effort has been made to ensure accuracy christian education director errors may have been included. Imaging studies, laboratory and physical exam results were discussed and reviewed in detail. No major barriers to patient understanding were identified. An opportunity to ask questions regarding the treatment plan was provided. All questions were answered. The patient expressed understanding and agreement with the above treatment plan. The patient is aware they should contact our office by phone for worsening of their current condition or the appearance of new urologic symptoms. Compliance is encouraged with any medications and followup testing that is ordered. It is a privilege to participate in the urologic care of your patient. If you have any questions or concerns regarding treatment for the above conditions, or other urologic issues, please do not hesitate to contact me. The office telephone contact is [phone]. Sincerely, Dr Prashant Schreiber MD, [facility] - Urology Compassionate Specialist Care for the Genitourinary System Coding Level of Care Code Est Pt Level 4 (60481) Diagnoses Nocturia more than twice per night R35.1 BPH w urinary obs/LUTS N40.1; N13.8
== END 2025-02-05 11:42 | disposition home or self-care (01) ==
LOC: HO.HUSH 10:46
PROVIDERS: PCP Nurse Practitioner Family; Visit Provider Urology
DX: N40.1 Benign prostatic hyperplasia with lower urinary tract symptoms (principal); R35.1 Nocturia; N13.8 Other obstructive and reflux uropathy; N39.0 Urinary tract infection, site not specified
CPT/HCPCS: 99214

== ENCOUNTER → 2025-02-05 10:45 | Outpatient (BNVA) | payer MEDICARE, MEDICAID, SELFPAY | PROVIDERS: PCP Nurse Practitioner Family; Visit Provider Urology | DX: N40.1 Benign prostatic hyperplasia with lower urinary tract symptoms (principal); R35.1 Nocturia; N13.8 Other obstructive and reflux uropathy | CPT/HCPCS: 81003; 99212 ==

== ENCOUNTER 2025-05-14 10:51 | Outpatient (AMB) | payer MEDICARE, MEDICAID, SELFPAY ==
--- NOTE | 2025-05-14 08:35 | MHC.OFFVIS ---
Intake Visit Reasons: Former Smoker Allergies No Known Allergies Allergy (Verified 02/05/25 10:55) HPI HPI Former Smoker: Details: [employer] media professor services used. Initial visit for this 69yo former smoker with a 30PYH. Patient started smoking at age 25 for 33 years at 1ppd. He quit around 2013. . Denies marijuana use. Denies second hand smoke exposure. Denies exposure to chemicals or substances like asbestos. . Denies known family history of lung cancer. Denies personal history of cancers. Denies chest CT in last year. . Denies recent travel outside the [place]. Denies recent respiratory illness or recent hospitalization for respiratory issues. Denies testing positive for COVID. Admits receiving COVID Vaccine. . Denies fever, chills, new/worsening cough, hemoptysis, hoarseness or dysphagia. Denies significant chest pain, significant dyspnea or unintentional weight loss. Patient Lung Cancer Screening Questionnaire reviewed with patient by provider. . Shared Decision Making Completed. Patient meets criteria. Discussed in detail with patient, the risk vs benefit of LDCT screening. Patient consents to proceed with scan. Discussed and encouraged continued smoking cessation. [facility] Medical History (Updated 05/14/25 @ 11:07 by Margoth Romeo PA-C) HTN (hypertension) Elevated cholesterol Diabetes (~2022) Microhematuria BPH w urinary obs/LUTS Fatty liver Hyperplastic colon polyp Personal history of nicotine dependence Surgical History (Updated 05/11/25 @ 15:03 by Margoth Romeo PA-C) History of appendectomy History of colonoscopy Social History (Updated 05/14/25 @ 11:08 by Margoth Romeo PA-C) Housing: House Patient Tobacco Use Status: Former Tobacco user Years Smoked: (onset 25yo, 1ppd x 33yrs, 30pyh - quit 2013) e-Cigarette/Vaping Use: Never Used Second Hand Smoke Exposure: No service: No Current occupational status: disabled Cognitive needs: No Hearing needs: No Vision needs: Yes Assessment & Plan Assessment & Plan (1) Personal history of nicotine dependence: Comment: (onset 25yo, 1ppd x 33yrs, 30pyh - quit 2013) Code(s): Z87.891 - Personal history of nicotine dependence Category: Medical Plan: - SDM visit completed today in office. - Patient meets criteria for LDCT for lung cancer screening purposes and is asymptomatic. - Smoking cessation counseling offered. Patients can always call [phone]. - Will arrange for a LDCT scan of the chest for screening purposes at [facility]. - Risks, benefits, and alternatives were discussed in detail and the patient agrees to proceed. - Risks discussed include but are not limited to: radiation exposure, anxiety during testing and while awaiting results, false negatives, false positives and possibility of additional intervention such as further imaging or surgical procedures for benign disease. - Benefits are obviously detection of lung cancer at an early stage which can lead to improved outcomes. - Discussed the importance of screening program compliance with adherence to yearly LDCT scan as scheduled - or sooner interval scans for personalized screening regimen. - Discussed follow up plan. Our office will send a letter discussing results and if needed set up phone call and office visit based on CT findings. - Patient educated on results categorization and the management decisions for suspicious findings potentially found on the screening LDCT scan. Any patient with a Lung RADS score of 3 or 4 will be reviewed by a multidisciplinary team at [facility] to form a plan of action in regards to scan findings. - If further work up is warranted for a suspicious lung finding this will be followed by the Lung Cancer Screening program in conjunction with the Thoracic Surgery Department at [facility]. - A copy of the office note and LDCT will be sent to the patient's PCP - as well as documentation on any associated further plans of care. - Incidental findings on LDCT are the PCP's responsibility. These findings are indicated with an S finding on the LDCT Assessment. A note discussing the findings will be sent to the PCP who is then responsible for further management. - All questions answered.? Coding Level of Care Code Lung Cancer Screening G0296 Diagnoses Personal history of nicotine dependence Z87.891
== END 2025-05-14 11:23 | disposition home or self-care (01) ==
LOC: HO.HPS 10:51
PROVIDERS: PCP Nurse Practitioner Family; Referring Provider Nurse Practitioner Family; Visit Provider Physician Assistant Medical
DX: Z87.891 Personal history of nicotine dependence (principal)
CPT/HCPCS: G0296

== ENCOUNTER 2025-05-14 11:20 | Outpatient (REF) | payer MEDICARE, MEDICAID, SELFPAY ==
--- NOTE | ~2025-05-14 | CT_ITS ---
CLINICAL HISTORY: Z87.891 - Personal history of nicotine dependence CT lung cancer screening (LDCT) Comparison: None provided Technique: Axial CT images of the chest using low-dose technique. Referring provider counseled the patient on shared decision-making for LDCT screening. Additional counseling was provided on smoking cessation. Effective radiation dose total: DLP 32.5 mGycm, CTDIvol 1.1 mGy. Findings: Lung: There are no solid or semi solid lesions. There is bilateral upper lobe ground-glass type opacification, possible pneumonia, atelectasis, or hemorrhage. Coronary artery calcifications: none Limited upper abdomen: Unremarkable Other: None IMPRESSION: Lung-RADS 2, benign finding. Clinical follow-up for ground-glass opacification. Recommend continued annual screening This document has been electronically signed by: Damon Wright MD on 05/15/2025 08:55:42
== END 2025-05-14 11:21 | disposition home or self-care (01) ==
LOC: HO.CT 11:20
PROVIDERS: PCP Nurse Practitioner Family; Visit Provider Physician Assistant Medical
DX: Z12.2 Encounter for screening for malignant neoplasm of respiratory organs (principal); Z87.891 Personal history of nicotine dependence
CPT/HCPCS: 71271; G0296

== ENCOUNTER → 2025-05-14 11:22 | Outpatient (BNV) | payer MEDICARE, MEDICAID, SELFPAY | PROVIDERS: PCP Nurse Practitioner Family; Visit Provider Specialist | DX: Z87.891 Personal history of nicotine dependence (principal) | CPT/HCPCS: 71271 ==

== ENCOUNTER 2025-07-22 12:14 | Outpatient (AMB) | payer MEDICARE, MEDICAID, SELFPAY ==
[2025-07-22 12:22] VITALS: BP 144/78; PULSE 93; O2SAT 98; BMI 25.7
--- NOTE | 2025-07-22 12:22 | MHC.PC.OV ---
Vital Signs 07/22/25 12:22 Height 5 ft 6 in Weight 159 lb BMI 25.7 BP 144/78 H Blood Pressure Location Lt brachial Position Sitting Pulse 93 Pulse Source Pulse Oximeter Pulse Oximetry (%) 98 Oxygen Delivery Method Room Air Intake Visit Reasons: Annual PE - see comments Brush Polisher Required: No Accompanied by: Self / Same As Patient Allergies No Known Allergies Allergy (Verified 07/22/25 12:26) Medication List - Last Reconciled 07/22/25 by Darwin Del Angel [facility] amlodipine 2.5 mg PO DAILY atorvastatin 20 mg PO QPM blood sugar diagnostic (Accu-Chek Guide test strips) Test blood sugar once a day blood-glucose meter (Accu-Chek Guide Me Glucose Meter) Test blood sugar once a day cholecalciferol (vitamin D3) 50 mcg PO DAILY enalapril maleate 20 mg PO DAILY 90 days hydrochlorothiazide 12.5 mg PO DAILY 90 days lancets (Accu-Chek Softclix Lancets) Test blood sugar once a day metformin ER 1,000 mg (2 x 500 mg) PO BID 90 days tamsulosin 0.4 mg PO BEDTIME 90 days Tobacco use date assessed: 07/22/25 Fall risk assessment: No Falls in past year Last assessed Fall Risk: 07/22/25 Dental Screening Dental Screen Date: 09/17/24 Did you have a dental visit in the last 12 months?: Yes Did you have a dental problem in the last 6 months where you did not have access to dental care?: No Was dental information given to patient?: Patient has dentist HPI Annual PE - see comments HPI Details History of Present Illness The patient is a 69 year old individual presenting for follow-up for diabetes management. The patient's HbA1c is 6.1%, and home glucose readings are in the low 100s. The patient denies any symptoms of neuropathy. Health Maintenance - The patient is due for a colonoscopy, and a referral to gastroenterology was made. - Fasting labs, including microalbumin, were ordered. - A diabetic eye exam was recommended. - HbA1c is 6.1%. - Follow-up is scheduled in 6 months. Social History - The patient attended the visit with the patient's . - The patient speaks some broken Indian. - An attempt to use an fws faculty assistant service via iPad was unsuccessful. Review of Systems - Neurological: Denies neuropathy. - Cardiovascular: Denies chest pain. - Respiratory: Denies shortness of breath. -denies ay current urinary issues, (sees urology) Physical Exam General: Cooperative, healthy appearing, comfortable, no acute distress and well developed, slightly anxious (daughter in hospital) Orientation: Patient oriented x3 Limitations: No limitations Head: Normal to inspection Ears: Hearing grossly normal bilaterally Nose: Normal external nose present Face and sinus: Normal facial exam Eyes: Appearance normal, both eyes and all related structures Neck: Normal visual inspection and Yes full ROM Respiratory: Normal respiratory effort and able to speak in complete sentences. Clear to auscultation bilaterally Cardiovascular: Regular rate and rhythm. Normal S1 and S2 GI: Normal to inspection. Soft to palpation and nontender Skin: several macular lesions to face/head Neuro: Patient oriented x3 Extremities: Feet intact, positive sensation with use of monofilament, intact Results - Labs: HbA1c is 6.1%. - Home Monitoring: Blood glucose levels are in the low 100s. Plan 1. Diabetes Mellitus The patient's diabetes is well-controlled, evidenced by an HbA1c of 6.1 and home blood glucose readings in the low 100s. A foot exam revealed intact feet and positive sensation to monofilament, with the patient denying neuropathy. Recommended an eye exam for diabetic retinopathy screening and ordered fasting lab work, including a microalbumin test, to monitor kidney health. The patient will follow up in 6 months. 2. Preventative Care The patient is due for a colon cancer screening, and a referral has been placed with gastroenterology. Discussion Notes I discussed with the patient and the patient's that the patient's diabetes is well-controlled, as shown by the recent A1c of 6.1 and home blood sugar readings. I explained the plan for ongoing health maintenance, including the need for fasting labs with a microalbumin test, a diabetic eye exam, and a colon cancer screening, for which a gastroenterology referral was placed. The patient understands these recommendations. We will follow up in 6 months, as the patient is doing quite well. Patient Instructions - Please schedule an appointment to get your blood work done. - Schedule an eye exam as recommended. - You have been referred to a specialist for a colon screening. - Please come back to the clinic in 6 months for a follow-up visit. [facility] Medical History HTN (hypertension) Elevated cholesterol Diabetes (~2022) Microhematuria BPH w urinary obs/LUTS Fatty liver Hyperplastic colon polyp Personal history of nicotine dependence Surgical History History of appendectomy History of colonoscopy Social History Housing: House Patient Tobacco Use Status: Former Tobacco user Years Smoked: (onset 25yo, 1ppd x 33yrs, 30pyh - quit 2013) e-Cigarette/Vaping Use: Never Used Second Hand Smoke Exposure: No service: No Current occupational status: disabled Cognitive needs: No Hearing needs: No Vision needs: Yes Questionnaire Thrive Questionnaire Date Thrive assessed: 09/17/24 I am a: Parent/Caregiver What is your living situation today?: I have a steady place to live Within the past 12 months, did the food you bought not last and you didn't have the money to get more?: I choose not to answer this question Within the past 12 months, did you worry whether your food would run out before you got money to buy more?: I choose not to answer this question Do you have trouble paying for medicines?: No Do you have trouble getting transportation to medical appointments?: No Do you have trouble paying your heating and electricity bill?: No Do you have trouble taking care of your child, family member or friend?: No Do you have trouble with day-to-day activities such as bathing, preparing meals, shopping, managing finances, etc.?: No Are you currently unemployed and looking for a job?: Yes Are you interested in more education?: No Please select the resources that you would like help with: None Currently or been in a relationship where the following occur: No concerns reported THRIVE Score: 0 LO-7 AMB Questionnaire LO-7 Date LO - 7 assessed: 09/17/24 Source: Developed by Drs. Juan Carlos Quintana, Suzette Villalpando, Ronald Goodwin and colleagues, with an educational kailee from [employer] Physical exam (Primary Care) Vital Signs: Last Vital Signs Pulse 93 07/22/25 12:22 BP 144/78 H 07/22/25 12:22 Pulse Ox 98 07/22/25 12:22 Oxygen Delivery Method Room Air 07/22/25 12:22 BMI result Body Mass Index 25.7 Tobacco/Smoking Status: Tobacco use Status Tobacco use date assessed 07/22/25 07/22/25 12:31 Patient Tobacco Use Status Former Tobacco user 07/22/25 12:31 e-Cigarette/Vaping Use Never Used 07/22/25 12:31 Thrive Assessment: Date of Thrive Assessment Date Thrive assessed 09/17/24 07/22/25 12:31 Currently or been in a relationship where the following occur: No concerns reported Results AMB Hemoglobin A1c AMB Hemoglobin A1c 6.1 % Last Edit by Brooklyn Lucas MA on 07/22/25 12:38 Results Reviewed Results Reviewed: Laboratory Last Values Hgb A1c (Clinic) 6.1 % (4.0-6.0) H 07/22/25 12:33 Coding Level of Care Code Est Pt Level 3 (33016) Est Pt Prev Care >65y(40237) Diagnoses Diabetes E11.9 Encounter for routine adult physical exam with abnormal findings Z00.01 Screening for colon cancer Z12.11 Assessment & Plan Assessment & Plan (1) Diabetes: Onset Date: ~2022 Code(s): E11.9 - Type 2 diabetes mellitus without complications Category: Medical (2) Encounter for routine adult physical exam with abnormal findings: Code(s): Z00.01 - Encounter for general adult medical examination with abnormal findings Category: Medical (3) Screening for colon cancer: Code(s): Z12.11 - Encounter for screening for malignant neoplasm of colon Category: Medical Plan . Orders: Orders AMB Hemoglobin A1c Today Z13.9 - Encounter for screening, unspecified Complete Blood Count Auto Diff Today E11.9 - Type 2 diabetes mellitus without complications, Z00.01 - Encounter for general adult medical examination with abnormal findings Microalbumin, Random (w Creat) Today E11.9 - Type 2 diabetes mellitus without complications, Z00.01 - Encounter for general adult medical examination with abnormal findings Comprehensive [place]. Panel Fast Today E11.9 - Type 2 diabetes mellitus without complications, Z00.01 - Encounter for general adult medical examination with abnormal findings TSH reflex Free T4 Today E11.9 - Type 2 diabetes mellitus without complications, Z00.01 - Encounter for general adult medical examination with abnormal findings UA CC w/rflx Micro + Cult Today E11.9 - Type 2 diabetes mellitus without complications, Z00.01 - Encounter for general adult medical examination with abnormal findings Lipid Panel Today E11.9 - Type 2 diabetes mellitus without complications, Z00.01 - Encounter for general adult medical examination with abnormal findings Referrals Gastroenterology Referral Z12.11 - Encounter for screening for malignant neoplasm of colon
== END 2025-07-22 13:15 | disposition home or self-care (01) ==
LOC: HO.HMCC 12:14
PROVIDERS: PCP Nurse Practitioner Family; Visit Provider Nurse Practitioner Family
DX: Z00.01 Encounter for general adult medical examination with abnormal findings (principal); E11.9 Type 2 diabetes mellitus without complications; Z12.11 Encounter for screening for malignant neoplasm of colon

== ENCOUNTER → 2025-07-22 12:14 | Outpatient (BNVA) | payer MEDICARE, MEDICAID, SELFPAY | PROVIDERS: PCP Nurse Practitioner Family; Visit Provider Nurse Practitioner Family | DX: Z00.01 Encounter for general adult medical examination with abnormal findings (principal); E11.9 Type 2 diabetes mellitus without complications | CPT/HCPCS: 83036; 99397 ==

== ENCOUNTER 2025-08-09 07:57 | Outpatient (REF) | payer MEDICARE, MEDICAID, SELFPAY ==
[2025-08-09 10:13] LABS: MANUAL DIFF FLAG NO
[2025-08-09 10:26] LABS: Hematocrit 42.6 % (42.0-52.0); Hemoglobin 13.9 g/dl (14.0-18.0); Imm Gran Abs Auto 0.01 X10*3/uL (0.00-0.03); Imm Gran Pct Auto 0.1 % (0.0-0.4); Lymphocytes Absolute Auto 3.1 X10*3/uL (1.2-4.9); Mean Corpuscular HGB Conc 32.6 g/dl (31.0-36.0); Mean Corpuscular Hemoglobin 29.0 pg (27.0-33.0); Mean Corpuscular Volume 88.8 fL (80.0-98.0); NRBC Abs Auto 0.000 X10*3/uL (0.0-0.012); NRBC Pct Auto 0.0 /100WBC (0.0-0.2); Platelet Count 238 X10*3/uL (160-400); Red Blood Count 4.80 X10*6/uL (4.60-5.80); White Blood Count 8.5 X10*3/uL (4.8-10.8)
[2025-08-09 10:31] LABS: Appearance Urine Cloudy; Glucose Urine UA Negative (Negative); PH 7.0 (5.0-9.0); Specific Gravity - Urine 1.020 (1.005-1.025); UMIC TRIGGER UACC YES
[2025-08-09 10:46] LABS: Microalbum/Creatinine Ratio Ur 7.7 ug/mg cr (<30); UACC Culture Trigger YES
[2025-08-09 11:30] LABS: Alanine Aminotransferase 23 U/L (0-40); Albumin Level 4.3 g/dL (3.5-5.0); Alkaline Phosphatase 80 U/L (39-117); Anion Gap 12 (12-20); Aspartate Amino Transferase 30 U/L (5-37); Blood Urea Nitrogen 16 mg/dL (9-16); Calcium 9.3 mg/dL (8.4-10.2); Carbon Dioxide 29 mmol/L (22-29); Chloride 104 mmol/L (96-108); Cholesterol 152 mg/dL (<200); Estimated Glomerular Filt Rate > 60; Ferritin 354 ng/mL (20-250); HDL Cholesterol 45 mg/dL (>40); Iron 59 mcg/dL (45-160); Percent Iron Saturation 20 % (15-50); Potassium 3.4 mmol/L (3.3-5.1); Sodium 142 mmol/L (135-145); Total Iron Binding Capacity 293 mcg/dL (228-428); Total Protein 7.9 g/dL (6.5-8.0); Triglycerides 120 mg/dL (<150); Unsaturated Iron Binding 234 ug/dL
[2025-08-10 06:37] LABS: Rubeola IgG (Measles) >300.00 AU/mL
== END 2025-08-09 07:58 | disposition home or self-care (01) ==
LOC: HO.HMGCLDS 07:57
PROVIDERS: PCP Nurse Practitioner Family; Visit Provider Nurse Practitioner Family
DX: Z00.01 Encounter for general adult medical examination with abnormal findings (principal); E11.9 Type 2 diabetes mellitus without complications; R79.89 Other specified abnormal findings of blood chemistry; Z28.39 Other underimmunization status; Z01.84 Encounter for antibody response examination
CPT/HCPCS: 36415; 80053; 80061; 81001; 82043; 82570; 82728; 83540; 84443; 85025; 86735; 86762; 86765; 86787; 87086